=== PATIENT | female | born 1990 ===

== ENCOUNTER 2018-05-11 21:56 | Emergency (ER) | payer SELFPAY ==
--- NOTE | 2018-05-11 22:25 | ED PDOC ---
Arrival/HPI - General Historian: Patient <Ashlee Stuart - Last Filed: 05/11/18 22:32> <Lamberto Li - Last Filed: 05/11/18 22:41> - General Time Seen by Provider: 05/11/18 21:59 - History of Present Illness Narrative History of Present Illness (Text): 05/11/18 22:22 28yo female present with complaint of fever (Tmax 100.9), right breast pain since this evening. Notes that she is currently breast feeding a 2 and half month child. States her pain is resolved temporary with Ibuprofen. Denies any other complaint. (Ashlee Stuart A) Past Medical History - Provider Review Nursing Documentation Reviewed: Yes <SadeAshlee - Last Filed: 05/11/18 22:32> Family/Social History - Physician Review Nursing Documentation Reviewed: Yes Family/Social History: Unknown Family HX <SadeAshlee A - Last Filed: 05/11/18 22:32> Allergies/Home Meds <SadeAshlee A - Last Filed: 05/11/18 22:32> <Lamberto Li - Last Filed: 05/11/18 22:41> Allergies/Adverse Reactions: Allergies No Known Allergies Allergy (Verified 05/11/18 22:30) Review of Systems - Physician Review All systems were reviewed & negative as marked: Yes - Review of Systems Constitutional: Fevers Eyes: Normal ENT: Normal Respiratory: Normal Cardiovascular: Normal Gastrointestinal: Normal Genitourinary Female: Other (Right breast pain) Musculoskeletal: Normal Skin: Normal Neurological: Normal Endocrine: Normal Hemo/Lymphatic: Normal Psychiatric: Normal <SadeAshlee A - Last Filed: 05/11/18 22:32> Physical Exam Vital Signs Reviewed: Yes Temperature: Afebrile Blood Pressure: Normal Pulse: Regular Respiratory Rate: Normal Appearance: Positive for: Well-Appearing, Non-Toxic, Comfortable Pain Distress: None Mental Status: Positive for: Alert and Oriented X 3 - Systems Exam Head: Present: Atraumatic, Normocephalic Pupils: Present: PERRL Extroacular Muscles: Present: EOMI Conjunctiva: Present: Normal Mouth: Present: Moist Mucous Membranes Neck: Present: Normal Range of Motion Respiratory/Chest: Present: Clear to Auscultation, Good Air Exchange. No: Respiratory Distress, Accessory Muscle Use Cardiovascular: Present: Regular Rate and Rhythm, Normal S1, S2. No: Murmurs Abdomen: No: Tenderness, Distention, Peritoneal Signs Breast/Axillary: Present: Erythema (Wedged shaped erythema noted on right breast ), Swelling, Tender to Palpation (Over area of induration on right breast). No : Nipple Discharge Back: Present: Normal Inspection Upper Extremity: Present: Normal Inspection. No: Cyanosis, Edema Lower Extremity: Present: Normal Inspection. No: Edema Neurological: Present: GCS=15, CN II-XII Intact, Speech Normal Skin: Present: Warm, Dry, Normal Color. No: Rashes Psychiatric: Present: Alert, Oriented x 3, Normal Insight, Normal Concentration <Ashlee Stuart A - Last Filed: 05/11/18 22:32> Vital Signs Temp Pulse Resp BP Pulse Ox 05/11/18 22:38 99.8 F H 115 H 20 128/72 100 - Medication Orders Current Medication Orders: Discontinued Medications Ibuprofen (Motrin Tab) 600 mg PO STAT STA Stop: 05/11/18 22:31 Penicillin V Potassium (Penicillin Vk Tab) 500 mg PO STAT STA PRN Reason: Protocol Stop: 05/11/18 22:31 - PA / INSTRUMENT MAKER AND REPAIRER / Resident Statement / has reviewed & agrees with the documentation as recorded. <Lamberto Li - Last Filed: 05/11/18 22:41> Disposition/Present on Arrival - Present on Arrival Any Indicators Present on Arrival: No History of DVT/PE: No History of Uncontrolled Diabetes: No Urinary Catheter: No History of Decub. Ulcer: No History Surgical Site Infection Following: None - Disposition Have Diagnosis and Disposition been Completed?: Yes Disposition Time: 22:30 Patient Plan: Discharge <Ashlee Stuart A - Last Filed: 05/11/18 22:32> <Lamberto Li - Last Filed: 05/11/18 22:41> - Disposition Diagnosis: Mastitis Disposition: HOME/ ROUTINE Condition: STABLE Discharge Instructions (ExitCare): Mastitis (DC) Additional Instructions: Take medication as directed Apply warm compress to breast and pump breast Follow up with your Doctor Return to ED for any new or worsening symptoms Prescriptions: Penicillin VK [Penicillin VK Tab] 500 mg PO BID #14 tab Referrals: Kayley Pugh MD [Staff Provider] - Follow up with primary
[2018-05-11 23:35] VITALS: BP 115/72; PULSE 92; RESP 16; TEMP 98.9; O2SAT 99
== END 2018-05-11 23:35 | disposition home or self-care (01) ==
LOC: MERGE 21:56 → ED 21:56
DX: N61.0 Mastitis without abscess (principal)

== ENCOUNTER 2018-06-10 23:50 | Inpatient (IN) | payer MEDICAID, OTHER ==
--- NOTE | 2018-06-11 00:42 | ED PDOC ---
Arrival/HPI - General Chief Complaint: Abdominal Pain Time Seen by Provider: 06/11/18 00:33 Historian: Patient - History of Present Illness Narrative History of Present Illness (Text): 06/11/18 00:41 Opal Qiu is a 28 year old female, whose past medical history includes C- section in January 2018, P:1, who presents to the Emergency department complaining of intermittent abdominal pain. Patient states she has been experiencing diffuse abdominal pain since yesterday with associated nausea and vomiting. Patient states pain worsened after eating yesterday. Patient states she has experienced similar symptoms in the past following her . Patient states she has not had her menstrual period since March 2018. Patient denies any fever, chills, diarrhea, urinary symptoms, back pain, neck pain, headache, dizziness, or any other complaints. Symptom Onset: Gradual Symptom Course: Unchanged Activities at Onset: Light Context: Home Past Medical History - Provider Review Nursing Documentation Reviewed: Yes - Psychiatric Hx Substance Use: No - Anesthesia Hx Anesthesia: No Family/Social History - Physician Review Nursing Documentation Reviewed: Yes Family/Social History: Unknown Family HX Smoking Status: Never Smoked Hx Alcohol Use: No Hx Substance Use: No Allergies/Home Meds Allergies/Adverse Reactions: Allergies No Known Allergies Allergy (Verified 01/02/18 17:09) Home Medications: Home Meds Medication Instructions Recorded Confirmed No Known Home Med 06/11/18 06/11/18 Review of Systems - Physician Review All systems were reviewed & negative as marked: Yes - Review of Systems Constitutional: Normal. absent: Fevers Eyes: Normal ENT: Normal Respiratory: Normal. absent: SOB, Cough Cardiovascular: Normal. absent: Chest Pain Gastrointestinal: Abdominal Pain, Nausea, Vomiting. absent: Diarrhea Genitourinary Female: Normal. absent: Dysuria, Frequency, Hematuria, Urine Output Changes Musculoskeletal: Normal. absent: Back Pain, Neck Pain Skin: Normal. absent: Rash Neurological: Normal. absent: Headache, Dizziness Endocrine: Normal Hemo/Lymphatic: Normal Psychiatric: Normal Physical Exam Vital Signs Reviewed: Yes Vital Signs Temp Pulse Resp BP Pulse Ox 06/11/18 00:27 99.2 F 91 H 20 128/92 H 99 Temperature: Afebrile Blood Pressure: Normal Pulse: Regular Respiratory Rate: Normal Appearance: Positive for: Well-Appearing, Non-Toxic, Comfortable Pain Distress: None Mental Status: Positive for: Alert and Oriented X 3 - Systems Exam Head: Present: Atraumatic, Normocephalic Pupils: Present: PERRL Extroacular Muscles: Present: EOMI Conjunctiva: Present: Normal Mouth: Present: Moist Mucous Membranes Neck: Present: Normal Range of Motion Respiratory/Chest: Present: Clear to Auscultation, Good Air Exchange. No: Respiratory Distress, Accessory Muscle Use Cardiovascular: Present: Regular Rate and Rhythm, Normal S1, S2. No: Murmurs Abdomen: Present: Tenderness (right sided/mid lower abdomen), Normal Bowel Sounds, Guarding, McBurney's Point Tender. No: Distention, Peritoneal Signs Back: Present: Normal Inspection Upper Extremity: Present: Normal Inspection. No: Cyanosis, Edema Lower Extremity: Present: Normal Inspection. No: Edema Neurological: Present: GCS=15, CN II-XII Intact, Speech Normal Skin: Present: Warm, Dry, Normal Color. No: Rashes Psychiatric: Present: Alert, Oriented x 3, Normal Insight, Normal Concentration Medical Decision Making ED Course and Treatment: 06/11/18 00:41 Impression: 28 year old female complaining of worsening diffuse abdominal pain, nausea, and vomiting since yesterday. Plan: -- CT Abdomen and Pelvis -- Labs, lipase -- Urinalysis -- IV fluids -- Zofran -- Reassess and disposition Prior Visits: Notes and results from previous visits were reviewed. On 05/11/2018, pt was seen in the Emergency department fever and right breast pain. Pt was discharged home. Progress Notes: 06/11/18 03:26 Reviewed radiology, CT Abdomen and Pelvis shows: Abdomen pelvis:Liver, gallbladder, spleen, pancreas, both adrenals and both kidneys are normal.Normal caliber aorta. Findings compatible with acute appendicitis. The right lower quadrant, the appendix is seen on images 67 through 77. It is distended to 1.4 cm and there is regional inflammation. No bowel obstruction. Unremarkable uterus. Scattered ovarian follicles. Small amount of free fluid. No free air. IMPRESSION: Blood cultures, Rocephin and Flagyl ordered. president trust company and Dr. Carranza paged. 06/11/18 03:53 Case discussed with assembler surgical garment transmission rebuilder, who evaluated pt in the Emergency room and discussed case with Dr. Carranza. Requests pt go to hospitalist service. 06/11/18 03:58 Case discussed with ophthalmic medical technician transmission rebuilder, who is aware and agrees with plan. 06/11/18 04:[address] Carrasco, who is aware and agrees with plan. Accepts pt in to hospitalist service. Pt will be admitted to [facility] for appendicitis. - Lab Interpretations Lab Results: 06/11/18 01:00 06/11/18 01:00 Lab Results 06/11/18 01:00: WBC 16.4 H, RBC 4.77, Hgb 13.2, Hct 38.0, MCV 79.7 L, MCH 27.7, MCHC 34.7, RDW 14.1, Plt Count 303, MPV 9.2 06/11/18 01:00: Sodium 140, Potassium 4.0, Chloride 101, Carbon Dioxide 29, Anion Gap 14, BUN 17, Creatinine 0.7, Est GFR ( Amer) > 60, Est GFR (Non- Af Amer) > 60, Random Glucose 116 H, Calcium 9.5, Total Bilirubin 0.4, AST 27, ALT 30, Alkaline Phosphatase 95, Total Protein 8.4 H, Albumin 4.8, Globulin 3.6 , Albumin/Globulin Ratio 1.3, Lipase 104 06/11/18 00:45: Urine Color Yellow, Urine Appearance Clear, Urine pH 8.0, Ur Specific [place] 1.010, Urine Protein Negative, Urine Glucose (UA) Negative, Urine Ketones Negative, Urine Blood Negative, Urine Nitrate Negative, Urine Bilirubin Negative, Urine Urobilinogen 0.2, Ur Leukocyte Esterase Negative I have reviewed the lab results: Yes - RAD Interpretation Radiology Orders: 06/11/18 01:44 ABD & PELVIS IV CONTRAST ONLY [CT] Stat Controls Engineer: Radiologist - Medication Orders Current Medication Orders: Metronidazole (Flagyl) 500 mg in 100 mls @ 100 mls/hr IVPB STAT STA PRN Reason: Protocol Stop: 06/11/18 04:28 Discontinued Medications Sodium Chloride (Sodium Chloride 0.9%) 1,000 mls @ 999 mls/hr IV .Q1H1M STA Stop: 06/11/18 01:43 Last Admin: 06/11/18 01:06 Dose: 999 mls/hr eMAR Start Stop Document 06/11/18 01:06 CNR (Rec: 06/11/18 01:06 CNR [id number]) Intravenous Solution Start Date 06/11/18 Start Time 01:06 End Date 06/11/18 End time 02:06 Total Infusion Time 60 Ceftriaxone Sodium (Rocephin 1 Gram Ivpb) 1 gm in 100 mls @ 200 mls/hr IV ONCE STA PRN Reason: Protocol Stop: 06/11/18 03:57 Last Admin: 06/11/18 03:42 Dose: 200 mls/hr eMAR Start Stop Document 06/11/18 03:42 CNR (Rec: 06/11/18 03:43 CNR [id number]) Intravenous Solution Start Date 06/11/18 Start Time 03:43 End Date 06/11/18 End time 04:13 Total Infusion Time 30 Ketorolac Tromethamine (Toradol) 30 mg IVP ONCE ONE Stop: 06/11/18 00:59 Last Admin: 06/11/18 01:06 Dose: 30 mg MAR Pain Assessment Document 06/11/18 01:06 CNR (Rec: 06/11/18 01:06 CNR [id number]) Pain Reassessment Is this a pain reassessment? No IVP Administration Document 06/11/18 01:06 CNR (Rec: 06/11/18 01:06 CNR [id number]) Charges for Administration # of IVP Administrations 1 Ondansetron HCl (Zofran Inj) 4 mg IVP ONCE ONE Stop: 06/11/18 00:44 Last Admin: 06/11/18 01:06 Dose: 4 mg IVP Administration Document 06/11/18 01:06 CNR (Rec: 06/11/18 01:06 CNR [id number]) Charges for Administration # of IVP Administrations 1 - Scribe Statement The provider has reviewed the documentation as recorded by the [place] Provider Scribe Attestation: All medical record entries made by the Scribsera were at my direction and personally dictated by me. I have reviewed the chart and agree that the record accurately reflects my personal performance of the history, physical exam, medical decision making, and the department course for this patient. I have also personally directed, reviewed, and agree with the discharge instructions and disposition. Disposition/Present on Arrival - Present on Arrival Any Indicators Present on Arrival: No History of DVT/PE: No History of Uncontrolled Diabetes: No Urinary Catheter: No History of Decub. Ulcer: No History Surgical Site Infection Following: None - Disposition Have Diagnosis and Disposition been Completed?: Yes Diagnosis: Appendicitis Disposition: HOSPITALIZED Disposition Time: 04:04 Patient Plan: Admission Condition: STABLE
[2018-06-11] MEDS ORDERED: Sodium Chloride 0.9% 1,000 ML IV STA (00:43)
[2018-06-11 01:13] LABS: URINE BILIRUBIN NEGATIVE (NEGATIVE); URINE BLOOD NEGATIVE (NEGATIVE); URINE GLUCOSE (UA) NEGATIVE (NEGATIVE); URINE LEUKOCYTE ESTERASE NEGATIVE Leu/uL (NEGATIVE); URINE PROTEIN NEGATIVE mg/dL (<30 mg/dL); URINE UROBILINOGEN 0.2 E.U./dL (<1 E.U./dL)
[2018-06-11 01:15] LABS: HEMOGLOBIN 13.2 g/dL (12.0-16.0); MEAN CELL VOLUME 79.7 fl (80.0-105.0); MEAN CORPUSCULAR HEMOGLOBIN 27.7 pg (25.0-35.0); MEAN CORPUSCULAR HGB CONC 34.7 g/dl (31.0-37.0); MEAN PLATELET VOLUME 9.2 fl (7.0-11.0); RBC 4.77 10^6/uL (3.5-6.1); RED CELL DISTRIBUTION WIDTH 14.1 % (11.5-14.5); WHITE BLOOD COUNT 16.4 10^3/ul (4.5-11.0)
[2018-06-11 01:20] LABS: URINE APPEARANCE CLEAR (CLEAR); URINE COLOR YELLOW (YELLOW)
[2018-06-11 01:26] LABS: ALB/GLOB RATIO 1.3 (1.1-1.8); ALBUMIN 4.8 g/dL (3.0-4.8); ALT/SGPT 30 U/L (7-56); AST/SGOT 27 U/L (14-36); BLOOD UREA NITROGEN 17 mg/dL (7-21); CALCIUM 9.5 mg/dL (8.4-10.5); GFR NON-AFRICAN AMERICAN > 60; LIPASE 104 U/L (23-300)
[2018-06-11] MEDS ORDERED: Iohexol 350 MG/100 ML VIAL ONE (01:54)
[2018-06-11] MEDS ORDERED: cefTRIAXone 1 gm 1 GM/100 ML BAG IV STA (03:28)
[2018-06-11] MEDS ORDERED: metroNIDAZOLE IV 500 mg/100 ml 500 MG/100 ML BAG IVPB STA (03:29)
--- NOTE | 2018-06-11 05:11 | CP.PCM.HP ---
<August Menchaca - Last Filed: 06/11/18 05:23> History of Present Illness - History of Present Illness History of Present Illness: August Menchaca, PGY-1 H&P for Hospitalist Service This is a 28 year old female with no PMH presenting to the hospital for one day history of abdominal pain, nausea and vomiting x2 nonbloody. Patient states she woke up and had B/L lower abdominal pain rated at 9/10, sharp, and non radiating. Pain is worse with standing and deep breathing. Patient says nothing makes the pain better. Patient has never had this pain before. She did not try anything for the pain. She denies CP, SOB, back pain, urinary complaints, diarrhea, constipation, hematochezia, fevers, chills, recent travel and recent sickness. 12 point ROS noted here, otherwise unremarkable. In ED, CT abd/pelvis concerning for acute appendicitis. Patient given zofran, toradol, flagyl and rocephin. General surgery planning for appendectomy later today. PMH: none SH: denies smoking, drinking and drugs Sx: in 01/2018 FH: denies any major health concerns All: denies Meds: denies Present on Admission - Present on Admission Any Indicators Present on Admission: No Past Patient History - Past Social History Smoking Status: Never Smoked - PSYCHIATRIC Hx Substance Use: No - SURGICAL HISTORY Hx Surgeries: No - ANESTHESIA Hx Anesthesia: No Meds Allergies/Adverse Reactions: Allergies Allergy/AdvReac Type Severity Reaction Status Date / Time No Known Allergies Allergy Verified 01/02/18 17:09 Physical Exam - Constitutional Appears: No Acute Distress - Head Exam Head Exam: ATRAUMATIC, NORMAL INSPECTION - Eye Exam Eye Exam: EOMI Pupil Exam: PERRL - ENT Exam ENT Exam: Normal Exam - Respiratory Exam Respiratory Exam: Clear to Auscultation Bilateral. absent: Respiratory Distress - Cardiovascular Exam Cardiovascular Exam: REGULAR RHYTHM, +S1, +S2 - GI/Abdominal Exam GI & Abdominal Exam: Normal Bowel Sounds. absent: Firm, Guarding Additional comments: RLQ tenderness appreciated - Extremities Exam Extremities exam: Positive for: normal inspection. Negative for: calf tenderness - Back Exam Back exam: NORMAL INSPECTION - Neurological Exam Neurological exam: Alert, Oriented x3 - Skin Skin Exam: Normal Color, Warm Results - Vital Signs Recent Vital Signs: Last Vital Signs Temp 99.2 F 06/11/18 00:27 Pulse 91 H 06/11/18 00:27 Resp 20 06/11/18 00:27 BP 128/92 H 06/11/18 00:27 Pulse Ox 99 06/11/18 00:27 - Labs Result Diagrams: 06/11/18 01:00 06/11/18 01:00 Assessment & Plan - Assessment and Plan (Free Text) Assessment: This is a 28 year old female with no PMH presenting for abdominal pain, nausea and vomiting concerning for acute appendictis. Appendectomy planned for today. Patient admitted to [facility]. Abdominal pain -CT abd/pelvis concerning for acute appendicitis -WBC of 16.4, afebrile -started on ciprofloxacin and flagyl -toradol and zofran prn -tylenol prn -NPO diet -plan for appendix removal today -General surgery on consult, Dr. Carranza PPX with protonix and SCD Patient seen and case discussed with attending, Dr. Luna Menchaca, PGY-1 <Truong Carrasco - Last Filed: 06/11/18 06:51> Results - Vital Signs Recent Vital Signs: Last Vital Signs Temp 99.2 F 06/11/18 00:27 Pulse 88 06/11/18 05:23 Resp 18 06/11/18 05:23 BP 116/72 06/11/18 05:23 Pulse Ox 99 06/11/18 05:23 - Labs Result Diagrams: 06/11/18 01:00 06/11/18 01:00 Attending/Attestation - Attestation I have personally seen and examined this patient.: Yes I have fully participated in the care of the patient.: Yes I have reviewed all pertinent clinical information: Yes
[2018-06-11] MEDS ORDERED: metroNIDAZOLE IV 500 mg/100 ml 500 MG/100 ML BAG IVPB SCH (06:00)
--- NOTE | 2018-06-11 06:11 | CP.PCM.CON ---
History of Present Illness - History of Present Illness History of Present Illness: General Surgery Consult for Dr. Carranza CC: Appendicitis This is a 28F with no PMH and a PSH of a 3 months ago who presents with one day of sever abdominal pain. It began at 2pm with nausea/vomiting and food intolerance and generalized abdominal pain however as the day progressed the pain became mores severe and localized to the lower abdomen. She reports feeling a similar sensation right after her . Nothing makes it better or worse. No fevers or chills at home. PMH: None PSH: ALL; NKDA Social: Denies smoking, drinking or drug use Review of Systems - Review of Systems All systems: reviewed and no additional remarkable complaints except - Constitutional Constitutional: absent: Chills, Fever - EENT Eyes: absent: Blind Spots, Change in Vision - Breasts Additional comments: Breast feeding - Cardiovascular Cardiovascular: absent: Chest Pain, Dyspnea - Respiratory Respiratory: absent: Dyspnea, Dyspnea on Exertion - Gastrointestinal Gastrointestinal: Abdominal Pain, Nausea, Vomiting. absent: Melena - Genitourinary Genitourinary: absent: Difficulty Urinating, Dysuria Past Patient History - Past Social History Smoking Status: Never Smoked - PSYCHIATRIC Hx Substance Use: No - SURGICAL HISTORY Hx Surgeries: No - ANESTHESIA Hx Anesthesia: No Meds Allergies/Adverse Reactions: Allergies Allergy/AdvReac Type Severity Reaction Status Date / Time No Known Allergies Allergy Verified 01/02/18 17:09 - Medications Medications: Current Medications Acetaminophen (Tylenol 325mg Tab) 650 mg PO Q6H PRN PRN Reason: Fever >100.4 F Ciprofloxacin (Cipro 200mg/100ml D5w) 100 mls @ 67 mls/hr IVPB Q12 ELISABETH PRN Reason: Protocol Stop: 06/11/18 11:30 Metronidazole (Flagyl) 500 mg in 100 mls @ 100 mls/hr IVPB Q8 ELISABETH PRN Reason: Protocol Ketorolac Tromethamine (Toradol) 30 mg IVP Q4 PRN PRN Reason: Pain, moderate (4-7) Last Admin: 06/11/18 05:11 Dose: 30 mg Ondansetron HCl (Zofran Inj) 4 mg IVP Q4 PRN PRN Reason: Nausea/Vomiting Pantoprazole Sodium (Protonix Inj) 40 mg IVP DAILY ELISABETH Physical Exam - Constitutional Appears: Non-toxic, No Acute Distress - Head Exam Head Exam: ATRAUMATIC, NORMOCEPHALIC - Eye Exam Eye Exam: EOMI - ENT Exam ENT Exam: Mucous Membranes Moist - Respiratory Exam Respiratory Exam: NORMAL BREATHING PATTERN - Cardiovascular Exam Cardiovascular Exam: +S1, +S2 - GI/Abdominal Exam GI & Abdominal Exam: Rebound, Soft. absent: Distended, Firm, Guarding, Rigid - Extremities Exam Extremities exam: Positive for: normal inspection - Neurological Exam Neurological exam: Alert, Oriented x3 - Psychiatric Exam Psychiatric exam: Normal Affect, Normal Mood - Skin Skin Exam: Dry, Intact Results - Vital Signs Recent Vital Signs: Last Vital Signs Temp 99.2 F 06/11/18 00:27 Pulse 88 06/11/18 05:23 Resp 18 06/11/18 05:23 BP 116/72 06/11/18 05:23 Pulse Ox 99 06/11/18 05:23 - Labs Result Diagrams: 06/11/18 01:00 06/11/18 01:00 - Imaging and Cardiology CT scan - abdomen Status: Image reviewed by me, Report reviewed by me CT scan - pelvis Status: Image reviewed by me, Report reviewed by me Assessment & Plan - Assessment and Plan (Free Text) Assessment: 28F with acute appendicitis NPO IVF ABX OR this afternoon D/W Dr. Tere Nava PGY3
[2018-06-11 06:58] VITALS: BMI 25.4
[2018-06-11 07:43] LABS: BASO # 0.03 K/mm3 (0.0-2.0); BASO % 0.2 % (0.0-3.0); EOS % 0.2 % (1.5-5.0); GRAN # 10.95 (1.4-6.5); GRAN % 80.2 % (50.0-68.0); LYMPH # 1.9 (1.2-3.4); LYMPH % 14.1 % (22.0-35.0); MEAN CELL VOLUME 79.9 fl (80.0-105.0); MEAN CORPUSCULAR HEMOGLOBIN 27.4 pg (25.0-35.0); MEAN CORPUSCULAR HGB CONC 34.3 g/dl (31.0-37.0); MEAN PLATELET VOLUME 8.9 fl (7.0-11.0); MONO # 0.7 (0.1-0.6); MONO % 5.3 % (1.0-6.0); RBC 4.02 10^6/uL (3.5-6.1); RED CELL DISTRIBUTION WIDTH 14.1 % (11.5-14.5); WHITE BLOOD COUNT 13.7 10^3/ul (4.5-11.0)
[2018-06-11 07:57] LABS: ALB/GLOB RATIO 1.4 (1.1-1.8); ALBUMIN 4.1 g/dL (3.0-4.8); ALT/SGPT 27 U/L (7-56); AST/SGOT 18 U/L (14-36); BLOOD UREA NITROGEN 12 mg/dL (7-21); CALCIUM 8.7 mg/dL (8.4-10.5); GFR NON-AFRICAN AMERICAN > 60
--- NOTE | 2018-06-11 08:57 | CT ---
Date of service: 06/11/2018 PROCEDURE: CT Abdomen and Pelvis with contrast HISTORY: abdominal pain COMPARISON: None. TECHNIQUE: Contrast dose: 100 cc of Omni 350 Radiation dose: Total exam DLP = 563 mGy-cm. This CT exam was performed using one or more of the following dose reduction techniques: Automated exposure control, adjustment of the mA and/or kV according to patient size, and/or use of iterative reconstruction technique. FINDINGS: LOWER THORAX: Unremarkable. LIVER: Unremarkable. No gross lesion or ductal dilatation. GALLBLADDER AND BILE DUCTS: Unremarkable. PANCREAS: Unremarkable. No gross lesion or ductal dilatation. SPLEEN: Unremarkable. ADRENALS: Unremarkable. No mass. KIDNEYS AND URETERS: Unremarkable. No hydronephrosis. No solid mass. VASCULATURE: Unremarkable. No aortic aneurysm. BOWEL: Unremarkable. No obstruction. No gross mural thickening. APPENDIX: There is evidence of acute appendicitis. The appendix is distended with fluid. There is enhancement of the wall. The appendix measures 1.2 cm in diameter. PERITONEUM: Unremarkable. No free fluid. No free air. LYMPH NODES: Unremarkable. No enlarged lymph nodes. BLADDER: Unremarkable. REPRODUCTIVE: Unremarkable. BONES: No acute fracture. OTHER FINDINGS: The report concurs with the preliminary [facility] report IMPRESSION: Acute appendicitis
[2018-06-11] MEDS ORDERED: Ciprofloxacin 200mg/100ml D5W 100 ML IVPB SCH (10:00)
[2018-06-11] MEDS: Sodium Chloride 0.9% 1,000 ML IV SCH ×2 (10:15→18:21)
[2018-06-11] MEDS: Piperacillin/Tazobact 3.375 gm 100 ML IVPB SCH ×2 (11:41→18:22)
[2018-06-11] MEDS ORDERED: HYDROmorphone 0.5 mg/0.5 ml ISec IVP PRN (18:21)
[2018-06-11] MEDS ORDERED: Propofol 10 mg/ml Inj (20 ML) ONE ×2 (18:30→19:35)
[2018-06-11] MEDS ORDERED: Lactated Ringer's 1,000 ML IV SCH (18:30)
[2018-06-11] MEDS ORDERED: Succinylcholine 200 mg/10 ml Inj IV ONE (18:30)
[2018-06-11] MEDS ORDERED: Bupivacaine 0.5% Inj(30mL) ONE (18:51)
[2018-06-11] MEDS ORDERED: Esmolol 100 mg/10ml Inj IV ONE (19:08)
[2018-06-11] MEDS ORDERED: Neostigmine Methylsulfate 3mg/3ml Syringe IV ONE (19:14)
[2018-06-11] MEDS ORDERED: Desflurane Inhalation Anesthetic Liq (240 ml) ONE (19:36)
[2018-06-11] MEDS ORDERED: oxyCODONE 5 mg Immediate Release Tab PO PRN ×2 (20:27)
--- NOTE | 2018-06-11 20:27 | PCM.SURG1 ---
Surgeon's Initial Post Op Note - Surgeon's Notes Surgeon: Dr. Carranza Mathematical Technician: Dr. Hopper PGY3 Type of Anesthesia: General Endo Pre-Operative Diagnosis: acute appendicitis Operative Findings: see dictation Post-Operative Diagnosis: same Operation Performed: laparoscopic appendectomy, lysis of adhesions, primary repair umbilical hernia Specimen/Specimens Removed: appendix; hernia contents Estimated Blood Loss: EBL {In ML}: 10 Blood Products Given: N/A Drains Used: No Drains Post-Op Condition: Good Date of Surgery/Procedure: 06/11/18 Time of Surgery/Procedure: 20:27
[2018-06-11 22:41] VITALS: RESP 20
[2018-06-12] MEDS: Sodium Chloride 0.9% 1,000 ML IV SCH (01:49)
[2018-06-12 07:10] LABS: BASO # 0.01 K/mm3 (0.0-2.0); BASO % 0.1 % (0.0-3.0); GRAN # 8.25 (1.4-6.5); GRAN % 82.8 % (50.0-68.0); HEMOGLOBIN 10.7 g/dL (12.0-16.0); LYMPH # 1.3 (1.2-3.4); LYMPH % 13.1 % (22.0-35.0); MEAN CELL VOLUME 80.1 fl (80.0-105.0); MEAN CORPUSCULAR HGB CONC 33.8 g/dl (31.0-37.0); MONO # 0.4 (0.1-0.6); RBC 3.96 10^6/uL (3.5-6.1); RED CELL DISTRIBUTION WIDTH 14.2 % (11.5-14.5)
[2018-06-12 07:23] LABS: ALB/GLOB RATIO 1.2 (1.1-1.8); ALT/SGPT 23 U/L (7-56); AST/SGOT 21 U/L (14-36); BLOOD UREA NITROGEN 10 mg/dL (7-21); CALCIUM 9.5 mg/dL (8.4-10.5); GFR NON-AFRICAN AMERICAN > 60
[2018-06-12] MEDS: Piperacillin/Tazobact 3.375 gm 100 ML IVPB SCH ×2 (07:37→12:19)
--- NOTE | 2018-06-12 08:50 | OP ---
PROCEDURE DATE: 06/11/2018 PREOPERATIVE DIAGNOSES: 1. Acute appendicitis. 2. Status post 3 months ago. 3. Leukocytosis. POSTOPERATIVE DIAGNOSES: 1. Acute suppurative phlegmonous appendicitis. 2. Pelvic abscess. 3. Extensive post operative omental adhesion to the anterior abdominal wall, status post . 4. Umbilical hernia. PROCEDURES DONE: 1. Laparoscopic appendectomy. 2. Laparoscopic extensive lysis of adhesions. 3. Laparoscopic drainage of pelvic abscess. 4. Open umbilical hernia repair without mesh, primary closure. SURGEON: The procedure was done by Carlos A cope MD. LABORER ELECTROPLATING: Ella Hopper DO, PGY-2 resident. ANESTHESIA: General endotracheal tube anesthesia. ESTIMATED BLOOD LOSS: Around 10 mL. DRAIN: None. PATHOLOGY: 1. Appendix was sent to the Pathology. 2. Umbilical hernia sac and content were sent to the Pathology. COMPLICATIONS: None. INTRAOPERATIVE FINDINGS: The patient has acute suppurative phlegmonous appendicitis with purulent pelvic abscess, and the patient also had 2 x 2 cm umbilical hernia. DESCRIPTION OF PROCEDURE: On intraoperative steps, this is a 28-year-old female who was diagnosed with acute appendicitis with leukocytosis, and the patient was status post 3 months ago, and the patient was considered for the laparoscopic appendectomy, possible open, brought to the OR, and placed supine on the operating room table. After induction of the anesthesia, the abdomen was prepped and draped in the usual sterile fashion. Supraumbilical transverse incision was made after incising skin, subcutaneous tissue, and the fascia. Fozia port was placed. The patient was found to have umbilical hernia defect, and Fozia port was passed through the defect, and Pneumo was created. Another, 5-mm port was placed in the right upper quadrant in order to do the extensive lysis of adhesions and the omentum was found to the lower abdominal wall, and with harmonic scalpel, the complete lysis of adhesion as well as enterolysis was done, and after that, the patient was found to have pelvic collection, that was suction irrigated, and the appendix appeared to be extremely thickened edematous, and there were some phlegmonous changes and another lysis of adhesion was done and the major appendix was dissected with harmonic scalpel. Base of the appendix was dissected with LUZ ELENA and appendix was sent off the table for the pathology. There was a proper hemostasis in each and every part of the procedure. Again, the suction and irrigation of the pelvic area was done and perihepatic area was also done, and after proper hemostasis, all the ports were taken out under vision. Pneumo was deflated. The umbilical port site had umbilical hernia and first hernial sac was dissected and the content was sent to the table for the pathology and hernial defect was closed with 0 Prolene interrupted multiple sutures and after proper closure of hernial defect without mesh, all the wounds were closed with two layers. The subcutaneous with 2-0 Vicryl, skin with 4-0 Monocryl, and dry sterile dressing was applied. The patient tolerated the procedure well. Count of instrument and gauze was correct. There was no apparent complications. The patient was extubated in OR and sent to the postanesthesia care unit in stable condition. Carlos A Carranza MD
[2018-06-12 09:35] VITALS: BP 103/64; PULSE 100; TEMP 98; O2SAT 96
--- NOTE | 2018-06-12 11:46 | CP.PCM.PN ---
Subjective - Date & Time of Evaluation Date of Evaluation: 06/12/18 Time of Evaluation: 10:30 - Subjective Subjective: Jaziel Leary DO, PGY-1 Surgery Progress Note for Dr. Carranza Patient was seen and examined at bedside this AM. She reports her initial RLQ pain has resolved and the pain from her incisions is controlled with tylenol. She feels ready to go home. Objective - Vital Signs/Intake and Output Vital Signs (last 24 hours): Temp Pulse Resp BP Pulse Ox 98 F 100 H 20 103/64 96 06/12/18 06:00 06/12/18 06:00 06/12/18 06:00 06/12/18 06:00 06/12/18 06:00 Intake and Output: 06/12/18 06/12/18 06:59 18:59 Intake Total 420 Balance 420 - Medications Medications: Current Medications Acetaminophen (Tylenol 325mg Tab) 650 mg PO Q4 PRN PRN Reason: Pain, Mild (1-3) Last Admin: 06/12/18 10:34 Dose: 650 mg Docusate Sodium (Colace) 100 mg PO DAILY [facility] Last Admin: 06/12/18 10:28 Dose: 100 mg Sodium Chloride (Sodium Chloride 0.9%) 1,000 mls @ 100 mls/hr IV .Q10H [facility] Last Admin: 06/12/18 01:49 Dose: 100 mls/hr Piperacillin Sod/Tazobactam Sod (Zosyn 3.375 In Ns 100ml) 100 mls @ 200 mls/hr IVPB Q6 [facility]AB[facility] PRN Reason: Protocol Stop: 06/12/18 12:29 Last Admin: 06/12/18 07:37 Dose: 200 mls/hr Ketorolac Tromethamine (Toradol) 30 mg IVP Q6 PRN PRN Reason: Pain, severe (8-10) Metoclopramide HCl (Reglan) 10 mg IV ONCE PRN PRN Reason: Nausea/Vomiting Ondansetron HCl (Zofran Inj) 4 mg IVP Q4 PRN PRN Reason: Nausea/Vomiting Ondansetron HCl (Zofran Inj) 4 mg IVP ONCE PRN PRN Reason: Nausea/Vomiting Oxycodone HCl (Oxycodone Immediate Release Tab) 5 mg PO Q4 PRN PRN Reason: Pain, moderate (4-7) Oxycodone HCl (Oxycodone Immediate Release Tab) 10 mg PO Q6 PRN PRN Reason: Pain, severe (8-10) Pantoprazole Sodium (Protonix Inj) 40 mg IVP DAILY [facility] Last Admin: 06/12/18 10:28 Dose: 40 mg - Labs Labs: 06/12/18 06:30 06/12/18 06:30 - Constitutional Appears: Well, Non-toxic, No Acute Distress - Head Exam Head Exam: ATRAUMATIC, NORMAL INSPECTION - Eye Exam Eye Exam: Normal appearance - ENT Exam ENT Exam: Mucous Membranes Moist - Neck Exam Neck Exam: Full ROM, Normal Inspection - Respiratory Exam Respiratory Exam: absent: Accessory Muscle Use, Respiratory Distress - Cardiovascular Exam Cardiovascular Exam: +S1, +S2 - GI/Abdominal Exam GI & Abdominal Exam: Soft. absent: Firm, Guarding, Tenderness, Rebound Additional comments: 4 surgical laparotomy wounds clean, dry, and intact - Extremities Exam Extremities Exam: Normal Inspection - Neurological Exam Neurological Exam: Alert, Awake, Oriented x3 - Psychiatric Exam Psychiatric exam: Normal Affect, Normal Mood - Skin Skin Exam: Dry, Intact, Normal Color, Warm Assessment and Plan - Assessment and Plan (Free Text) Assessment: 28 F with appendicitis s/p lap appendectomy POD 1. Plan: -Patient cleared for discharge from surgical standpoint -F/u with Dr. Carranza in 7-10 days -Instructed patient to avoid lifting her young son or anything else > 20 lbs -Instructed patient she may resume tomorrow (POD 2) -Augmentin 500 BID for 7 days -Instructed patient not to shower until Dr. Carranza sees in office Case and plan discussed with Dr. Tere Leary DO Resident PGY-1
--- NOTE | 2018-06-12 13:10 | CP.PCM.DIS ---
Provider - Provider Date of Admission: 06/11/18 03:56 Attending physician: Brunilda Zhang DO Primary care physician: none Consults: surgery (Tere) Time Spent in preparation of Discharge (in minutes): 45 Diagnosis - Discharge Diagnosis (1) Appendicitis Status: Acute Priority: High Hospital Course - Lab Results Lab Results: Most Recent Lab Values WBC 10.0 10^3/ul (4.5-11.0) D 06/12/18 06:30 RBC 3.96 10^6/uL (3.5-6.1) 06/12/18 06:30 Hgb 10.7 g/dL (12.0-16.0) L 06/12/18 06:30 Hct 31.7 % (36.0-48.0) L 06/12/18 06:30 MCV 80.1 fl (80.0-105.0) 06/12/18 06:30 MCH 27.0 pg (25.0-35.0) 06/12/18 06:30 MCHC 33.8 g/dl (31.0-37.0) 06/12/18 06:30 RDW 14.2 % (11.5-14.5) 06/12/18 06:30 Plt Count 238 10^3/uL (120.0-450.0) 06/12/18 06:30 MPV 9.0 fl (7.0-11.0) 06/12/18 06:30 Gran % 82.8 % (50.0-68.0) H 06/12/18 06:30 Lymph % (Auto) 13.1 % (22.0-35.0) L 06/12/18 06:30 Sherman % (Auto) 4.0 % (1.0-6.0) 06/12/18 06:30 Eos % (Auto) 0.0 % (1.5-5.0) L 06/12/18 06:30 Baso % (Auto) 0.1 % (0.0-3.0) 06/12/18 06:30 Gran # 8.25 (1.4-6.5) H 06/12/18 06:30 Lymph # (Auto) 1.3 (1.2-3.4) 06/12/18 06:30 Sherman # (Auto) 0.4 (0.1-0.6) 06/12/18 06:30 Eos # (Auto) 0.0 (0.0-0.7) 06/12/18 06:30 Baso # (Auto) 0.01 K/mm3 (0.0-2.0) 06/12/18 06:30 Sodium 141 mmol/L (132-148) 06/12/18 06:30 Potassium 4.4 mmol/L (3.6-5.0) 06/12/18 06:30 Chloride 107 mmol/L (98-107) 06/12/18 06:30 Carbon Dioxide 26 mmol/L (21-33) 06/12/18 06:30 Anion Gap 13 (10-20) 06/12/18 06:30 BUN 10 mg/dL (7-21) 06/12/18 06:30 Creatinine 0.6 mg/dl (0.7-1.2) L 06/12/18 06:30 Est GFR ( Amer) > 60 06/12/18 06:30 Est GFR (Non-Af Amer) > 60 06/12/18 06:30 Random Glucose 123 mg/dL (70-110) H 06/12/18 06:30 Calcium 9.5 mg/dL (8.4-10.5) 06/12/18 06:30 Phosphorus 4.5 mg/dL (2.5-4.5) 06/12/18 06:30 Magnesium 2.0 mg/dL (1.7-2.2) 06/12/18 06:30 Total Bilirubin 0.6 mg/dL (0.2-1.3) 06/12/18 06:30 AST 21 U/L (14-36) 06/12/18 06:30 ALT 23 U/L (7-56) 06/12/18 06:30 Alkaline Phosphatase 69 U/L (38-126) 06/12/18 06:30 Total Protein 7.2 g/dL (5.8-8.3) 06/12/18 06:30 Albumin 4.0 g/dL (3.0-4.8) 06/12/18 06:30 Globulin 3.3 gm/dL 06/12/18 06:30 Albumin/Globulin Ratio 1.2 (1.1-1.8) 09/12/18 06:30 Lipase 104 U/L (23-300) 06/11/18 01:00 Urine Color Yellow (YELLOW) 06/11/18 00:45 Urine Appearance Clear (CLEAR) 06/11/18 00:45 Urine pH 8.0 (4.7-8.0) 06/11/18 00:45 Ur Specific [place] 1.010 (1.005-1.035) 06/11/18 00:45 Urine Protein Negative mg/dL (<30 mg/dL) 06/11/18 00:45 Urine Glucose (UA) Negative mg/dL (NEGATIVE) 06/11/18 00:45 Urine Ketones Negative mg/dL (NEGATIVE) 06/11/18 00:45 Urine Blood Negative (NEGATIVE) 06/11/18 00:45 Urine Nitrate Negative (NEGATIVE) 06/11/18 00:45 Urine Bilirubin Negative (NEGATIVE) 06/11/18 00:45 Urine Urobilinogen 0.2 E.U./dL (<1 E.U./dL) 06/11/18 00:45 Ur Leukocyte Esterase Negative Gerardo/uL (NEGATIVE) 06/11/18 00:45 - Hospital Course Hospital Course: This is a 28 year old female with no PMH presenting to the hospital for one day history of abdominal pain, nausea and vomiting x2 nonbloody. Patient states she woke up and had B/L lower abdominal pain rated at 9/10, sharp, and non radiating. Pain is worse with standing and deep breathing. Patient says nothing makes the pain better. Patient has never had this pain before. She did not try anything for the pain. She denies CP, SOB, back pain, urinary complaints, diarrhea, constipation, hematochezia, fevers, chills, recent travel and recent sickness. 12 point ROS noted here, otherwise unremarkable. In ED, CT abd/pelvis concerning for acute appendicitis. Patient given zofran, toradol, flagyl and rocephin. The patient had a laproscopic appendectomy with umbilical hernia repair on without complications. Post-op, the patient's pain was well controlled. She was tolerating oral intake, urinating, and passing gas. Upon discharge, the patient's leukocystosis resolved. She was afebrile. Her pain was well-controlled with Tylenol. Patient was transitioned from IV abx to oral Augmentin. Discharge Exam - Head Exam Head Exam: ATRAUMATIC, NORMAL INSPECTION - Eye Exam Eye Exam: EOMI, Normal appearance, PERRL - ENT Exam ENT Exam: Mucous Membranes Moist, Normal Exam - Neck Exam Neck exam: Normal Inspection - Respiratory Exam Respiratory Exam: Clear to PA & Lateral, NORMAL BREATHING PATTERN - Cardiovascular Exam Cardiovascular Exam: REGULAR RHYTHM, +S1, +S2 - GI/Abdominal Exam GI & Abdominal Exam: Normal Bowel Sounds, Soft, Tenderness (mild), Unremarkable. absent: Firm, Guarding Additional comments: bandages over surgical incisions, clean, dry, no signs of infection - Rectal Exam Rectal Exam: Deferred - Extremities Exam Extremities exam: normal inspection, pedal pulses present - Back Exam Back exam: NORMAL INSPECTION - Neurological Exam Neurological exam: Alert, CN II-XII Intact, Normal Gait, Oriented x3 - Psychiatric Exam Psychiatric exam: Normal Affect, Normal Mood - Skin Skin Exam: Dry, Intact, Normal Color, Warm Discharge Plan - Discharge Medications Prescriptions: Amoxicillin/Clavulanate [Augmentin 500 MG-125 MG] 1 tab PO BID 7 Days #14 tab - Follow Up Plan Condition: IMPROVED Disposition: HOME/ ROUTINE Patient education suggested?: Yes Instructions: Appendicitis in Adults, Diet, Appendectomy, Laparoscopic Surgery (DC), Medicine and Additional Instructions: You are being discharged from [facility] after having a laproscopic appendectomy on 06/11/18. Do NOT breast feed for the next 24 hours. You may resume breast feeding tomorrow, 06/13/18. Please follow-up with surgeon, Dr. Carranza, within 7-10 days. Do not shower until after you see the surgeon for follow-up; you may take sponge baths. Please establish care with a primary care physician at the [facility] at [facility]. You have an appointment scheduled for 06/20/18 at 3 PM. Please bring all of you [facility] and Medicaid paperwork with you to this appointment and arrive 30 minutes early to complete demographic paperwork. Please take the follow medication for a total of 7 days (all pills): Augmentin 500-125 mg- take one by mouth twice daily For pain, you may use [id number] Tylenol- please follow instructions on the bottle. For constipation, please visit your pharmacy and ask the pharmacist for an over- the-counter medication that is safe with breast feeding. If symptoms return, please present to the nearest emergency room. Referrals: [facility] at [facility] [Outside] Carlos A Carranza MD [Medical Doctor] -
[2018-06-13] MEDS ORDERED: Pantoprazole 40 mg EC Tab PO SCH (07:30)
== END 2018-06-12 15:45 | disposition home or self-care (01) | DRG 337 ==
LOC: ED 23:50 → ERH 06-11 03:56 → 5RNO 06-11 05:38
PROVIDERS: ADMIT Internal Medicine; ATTEND Hospitalist
PROC: 0WQF0ZZ Repair Abdominal Wall, Open Approach (ICD-10-PCS; 2018-06-11)
PROC: 0J9C3ZZ Drainage of Pelvic Region Subcutaneous Tissue and Fascia, Percutaneous Approach (ICD-10-PCS; 2018-06-11)
PROC: 0DTJ4ZZ Resection of Appendix, Percutaneous Endoscopic Approach (ICD-10-PCS; principal; 2018-06-11 16:00)
PROC: 0DNU4ZZ Release Omentum, Percutaneous Endoscopic Approach (ICD-10-PCS; 2018-06-11 16:00)
DX: K35.80 Unspecified acute appendicitis (principal); K42.9 Umbilical hernia without obstruction or gangrene; N73.9 Female pelvic inflammatory disease, unspecified; K66.0 Peritoneal adhesions (postprocedural) (postinfection); Z98.891 History of uterine scar from previous surgery

== ENCOUNTER 2018-07-05 15:04 | Inpatient (IN) | payer MEDICAID, OTHER ==
[2018-07-05 15:30] VITALS: BMI 28.6
--- NOTE | 2018-07-05 15:57 | ED PDOC ---
Arrival/HPI - General Chief Complaint: Abdominal Pain Time Seen by Provider: 07/05/18 15:53 Historian: Patient - History of Present Illness Narrative History of Present Illness (Text): 07/05/18 15:55 A 28 year old female, whose past medical history includes appendectomy and hernia repair, presents to the emergency department with sudden onset of sever epigastric pain radiating to her back since yesterday. Patient reports pain is now constant and severe. Patient reports associated nausea and worsens with any eating or drinking. Patient denies any fever, chills, shortness of breath, chest pain, diarrhea, vomiting, urinary symptoms, back pain, neck pain, headache, dizziness, or any other complaints. Time/Duration: 24 hours (Since yesterday) Symptom Onset: Sudden Symptom Course: Unchanged Severity Level: Severe Activities at Onset: Light Context: Home Past Medical History - Provider Review Nursing Documentation Reviewed: Yes - Infectious Disease Hx of Infectious Diseases: None - Cardiac Hx Cardiac Disorders: No - Pulmonary Hx Respiratory Disorders: No - Neurological Hx Neurological Disorder: No - HEENT Hx HEENT Disorder: No - Renal Hx Renal Disorder: No - Endocrine/Metabolic Hx Endocrine Disorders: No - Hematological/Oncological Hx Blood Disorders: No - Integumentary Hx Dermatological Disorder: No - Musculoskeletal/Rheumatological Hx Musculoskeletal Disorders: No - Gastrointestinal Hx Gastrointestinal Disorders: No - Genitourinary/Gynecological Hx Genitourinary Disorders: No - Psychiatric Hx Psychophysiologic Disorder: No Hx Substance Use: No - Surgical History Hx Appendectomy: Yes (June 2018) Hx Section: Yes (January 2018) - Anesthesia Hx Anesthesia Reactions: No Hx Malignant Hyperthermia: No - Suicidal Assessment Feels Threatened In Home Enviroment: No Family/Social History - Physician Review Nursing Documentation Reviewed: Yes Family/Social History: Unknown Family HX Smoking Status: Never Smoked Hx Alcohol Use: No Hx Substance Use: No Allergies/Home Meds Allergies/Adverse Reactions: Allergies No Known Allergies Allergy (Verified 07/05/18 15:36) Home Medications: Home Meds Medication Instructions Recorded Confirmed RX: No Known Home Med 07/05/18 07/05/18 Review of Systems - Review of Systems Constitutional: Fatigue. absent: Fevers Eyes: absent: Vision Changes ENT: absent: Hearing Changes Respiratory: SOB. absent: Cough Cardiovascular: absent: Chest Pain Gastrointestinal: Abdominal Pain, Nausea, Appetite Changes. absent: Stool Changes, Constipation, Diarrhea Genitourinary Female: absent: Dysuria, Frequency Musculoskeletal: Back Pain. absent: Neck Pain Skin: absent: Rash Neurological: absent: Headache, Dizziness Endocrine: absent: Polyuria Hemo/Lymphatic: absent: Easy Bleeding Psychiatric: absent: Depression Physical Exam - Physical Exam Narrative Physical Exam (Text): 07/05/18 15:58 Head: Atraumatic. Normocephalic. Eyes: PERRL. EOMI. Conjunctivae are not pale. Anicteric. ENT: Mucous membranes are dry. No stridor. No droolingt. Oropharynx is clear and symmetric. Neck: Supple. Full ROM. No JVD. No lymphadenopathy. Cardiovascular: Tachycardic. Distal pulses are 2+ and symmetric. Pulmonary/Chest: No evidence of respiratory distress. Clear to auscultation bilaterally. No wheezing, rales or rhonchi. Abdominal: Soft, nondistended. Surgical scar noted. Focal epigastric and RUQ pain. Rebound and guarding in epigastric region. No pulsatile masses. Back: No CVA tenderness. Extremities: No edema. No cyanosis. No clubbing. Full range of motion in all extremities. No calf tenderness. Skin: Skin is disphorectic. No petechiae. No purpura. Neurological: Alert, awake, and oriented. Motor and sensory exam intact. Psychiatric: Good eye contact. Tearful in pain. Vital Signs Reviewed: Yes Vital Signs Temp Pulse Resp BP Pulse Ox 07/05/18 15:30 98.0 F 102 H 18 108/69 96 Temperature: Afebrile Blood Pressure: Normal Pulse: Tachycardic Respiratory Rate: Normal Appearance: Positive for: Ill-Appearing, Uncomfortable Pain Distress: Severe Mental Status: Positive for: Alert and Oriented X 3 Medical Decision Making ED Course and Treatment: Patient with severe upper abdominal pain, intermittent, now constant since last night. On exam she is severely uncomfortable, diaphoretic. I reviewed iv pain medication options for her as she is breast feeding. She acknowledges risks and is agreeable to iv morphine for pain. Her lungs are clear. Oxygen saturations 98%. No calf pain. No pleuritic pain. No chest pain. 07/05/18 18:08 Procedure: Abdomen Ultrasound Impression: 1. Cholelithiasis identified within a distended gallbladder both no other acute findings to suggest acute cholecystitis. Clinically correlate further. See discussion above. 2. Otherwise unremarkable exam. Dictator: Bobo Latham MD 07/05/18 21:06 Re-exam, pain is slightly improved but remains severe. Abnormal labs and ultrasound findings reviewed with patient. Labs suggestive of possible pancreatitis, r/o cholecystitis. Based on severity of pain, senior electronics design engineer surgeon Dr. Zhang consulted. We have also consulted Dr. Hwang, senior electronics design engineer GI. Patient admitted for pancreatitis, cholecystitis. Risks, side effects of initiated antibiotics and pain mediation reviewed with patient. On re-exam, she denies any shortness of breath. Patient accepted to hospitalist service by Dr. Campos. - RAD Interpretation Saddle Stitch Operator: Radiologist - EKG Interpretation EKG Interpretation (Text): 07/05/18 21:05 EKG at 1744 normal sinus rhythm rate of 79 with incomplete RBBB Interpreted by ED Physician: Yes Type: 12 lead EKG - Scribe Statement The provider has reviewed the documentation as recorded by the Los Hammond All medical record entries made by the Los were at my direction and personally dictated by me. I have reviewed the chart and agree that the record accurately reflects my personal performance of the history, physical exam, medical decision making, and the department course for this patient. I have also personally directed, reviewed, and agree with the discharge instructions and disposition. Disposition/Present on Arrival - Present on Arrival Any Indicators Present on Arrival: No History of DVT/PE: No History of Uncontrolled Diabetes: No Urinary Catheter: No History of Decub. Ulcer: No History Surgical Site Infection Following: None - Disposition Have Diagnosis and Disposition been Completed?: Yes Diagnosis: Pancreatitis, Cholecystitis, Elevated liver enzymes Disposition: HOSPITALIZED Disposition Time: 17:35 Patient Plan: Admission Patient Problems: Current Active Problems Problem Status Onset Cholecystitis Acute Elevated liver enzymes Acute Pancreatitis Acute Condition: SERIOUS
[2018-07-05] MEDS ORDERED: Sodium Chloride 0.9% 1,000 ML IV STA (16:02)
[2018-07-05] MEDS ORDERED: Morphine 2 mg/ml ISec IVP STA (16:02)
[2018-07-05 16:16] LABS: BASO # 0.02 K/mm3 (0.0-2.0); BASO % 0.2 % (0.0-3.0); EOS # 0.2 (0.0-0.7); EOS % 1.5 % (1.5-5.0); GRAN # 7.92 (1.4-6.5); GRAN % 75.5 % (50.0-68.0); HEMOGLOBIN 14.3 g/dL (12.0-16.0); LYMPH # 1.4 (1.2-3.4); LYMPH % 13.1 % (22.0-35.0); MEAN CELL VOLUME 79.8 fl (80.0-105.0); MEAN CORPUSCULAR HEMOGLOBIN 27.7 pg (25.0-35.0); MEAN CORPUSCULAR HGB CONC 34.7 g/dl (31.0-37.0); MEAN PLATELET VOLUME 9.8 fl (7.0-11.0); MONO % 9.7 % (1.0-6.0); RBC 5.16 10^6/uL (3.5-6.1); RED CELL DISTRIBUTION WIDTH 13.8 % (11.5-14.5); WHITE BLOOD COUNT 10.5 10^3/ul (4.5-11.0)
[2018-07-05 16:20] LABS: URINE APPEARANCE CLEAR (CLEAR); URINE BILIRUBIN SMALL (NEGATIVE); URINE BLOOD NEGATIVE (NEGATIVE); URINE COLOR DARK YELLOW (YELLOW); URINE GLUCOSE (UA) NEGATIVE (NEGATIVE); URINE LEUKOCYTE ESTERASE NEGATIVE Leu/uL (NEGATIVE); URINE PROTEIN TRACE mg/dL (<30 mg/dL); URINE UROBILINOGEN 0.2 E.U./dL (<1 E.U./dL)
[2018-07-05 16:22] LABS: HCG,QUALITATIVE URINE NEGATIVE (NEGATIVE)
[2018-07-05 16:26] LABS: URINE BACTERIA TRACE (NEG); URINE RBC NEGATIVE /hpf (0-2); URINE WBC NEGATIVE /hpf (0-6)
[2018-07-05 16:28] LABS: INR 1.06; PARTIAL THROMBOPLASTIN TIME 32.5 Seconds (25.1-36.5); PROTHROMBIN TIME 12.1 SECONDS (9.4-12.5)
[2018-07-05 16:31] LABS: ALB/GLOB RATIO 1.2 (1.1-1.8); ALBUMIN 5.1 g/dL (3.0-4.8); BLOOD UREA NITROGEN 12 mg/dL (7-21); CALCIUM 10.3 mg/dL (8.4-10.5); GFR NON-AFRICAN AMERICAN > 60
[2018-07-05 16:37] LABS: TROPONIN I < 0.01 ng/mL
[2018-07-05 16:39] LABS: ALT/SGPT 1286 U/L (7-56); AST/SGOT 1246 U/L (14-36)
[2018-07-05 16:50] LABS: AMYLASE 3432 U/L (35-125)
[2018-07-05] MEDS ORDERED: cefTRIAXone 1 gm 1 GM/100 ML BAG IVPB STA (16:52)
[2018-07-05] MEDS ORDERED: metroNIDAZOLE IV 500 mg/100 ml 500 MG/100 ML BAG IV ONE (16:52)
[2018-07-05 17:18] LABS: LIPASE 49765 U/L (23-300)
[2018-07-05] MEDS ORDERED: Morphine 4 mg/ml ISec IVP STA (17:31)
--- NOTE | 2018-07-05 18:00 | US ---
Date of service: 07/05/2018 HISTORY: upper abdominal pain COMPARISON: Abdomen pelvis CT with contrast 06/11/2018. TECHNIQUE: Sonographic evaluation of the abdomen. FINDINGS: LIVER: Measures 13.5 cm. Normal echogenicity of the liver parenchyma. Maxwell's lobe identified. No mass. No intrahepatic bile duct dilatation. GALLBLADDER: There is moderate gallbladder distention with layering cholelithiasis at the dependent portion of the gallbladder diffusely. No mural thickening or pericholecystic fluid collection. No sonographic Perez sign reported either. COMMON BILE DUCT: Measures 3.7 mm. No stones. No dilatation. PANCREAS: Unremarkable as visualized. No mass. No ductal dilatation. RIGHT KIDNEY: Measures 11.7cm. Normal echogenicity. No calculus, mass, or hydronephrosis. LEFT KIDNEY: Measures 11.7cm. Normal echogenicity. No calculus, mass, or hydronephrosis. SPLEEN: Normal in size and contour, measuring 11.7 cm. No mass. AORTA: No aneurysmal dilatation. IVC: Unremarkable. OTHER FINDINGS: None. IMPRESSION: 1. Cholelithiasis identified within a distended gallbladder both no other acute findings to suggest acute cholecystitis. Clinically correlate further. See discussion above. 2. Otherwise unremarkable exam.
[2018-07-05 18:05] LABS: VENOUS BLOOD GAS BASE EXCESS -1.1 mmol/L (0.0-2.0); VENOUS BLOOD GAS PO2 44 mm/Hg (30-55)
[2018-07-05] MEDS ORDERED: HYDROmorphone 1 mg/ml ISec IVP PRN (18:14)
[2018-07-05] MEDS: Sodium Chloride 0.9% 1,000 ML IV SCH (18:33)
--- NOTE | 2018-07-05 18:56 | CP.PCM.HP ---
<Buffy Ferraro - Last Filed: 07/05/18 20:57> History of Present Illness - History of Present Illness History of Present Illness: PGY-1 Buffy Ferraro D.O. H&P for Dr. Campos's service: Opal Byrd is a 28 yo female with PMH of appendectomy 3 weeks ago who presented to the ED with RUQ pain. Pain began yesterday. She also had 2 episodes of nausea and vomiting, non-bloody. Patient is presently her 4 month old son, and, thus, did not take any medication for the pain. She also endorses SOB 2/2 to pain. Her nausea is persistent. She has not tolerated PO intake since yesterday. She denies chest pain, fevers and chills, diarrhea or constipation, or urinary symptoms. PMH: denies PSH: in 01/2018, lap appy in 06/2018 Meds: none All: NKA FH: reviewed and noncontributory SH: lives with and son denies alcohol, tobacco, illicit drug use PMD: [facility] Present on Admission - Present on Admission Any Indicators Present on Admission: No History of DVT/PE: No History of Uncontrolled Diabetes: No Urinary Catheter: No Decubitus Ulcer Present: No History Surgical Site Infection Following: None Review of Systems - Constitutional Constitutional: absent: Chills, Fatigue, Fever, Headache, Weakness - EENT Eyes: absent: Change in Vision Ears: absent: Decreased Hearing, Tinnitus Nose/Mouth/Throat: absent: Nasal Congestion, Sore Throat - Cardiovascular Cardiovascular: Dyspnea. absent: Chest Pain, Edema, Palpitations - Respiratory Respiratory: Dyspnea. absent: Cough, Chest Congestion - Gastrointestinal Gastrointestinal: As Per HPI, Abdominal Pain, Nausea, Vomiting. absent: Constipation, Diarrhea, Hematemesis - Genitourinary Genitourinary: Dysuria. absent: Difficulty Urinating, Hematuria - Reproductive: Female Additional comments: - Musculoskeletal Musculoskeletal: absent: Muscle Weakness, Numbness, Tingling - Integumentary Integumentary: absent: Lesions - Neurological Neurological: absent: Dizziness, Numbness, Focal Weakness, Headaches, Paresthesias, Syncope, Tingling, Tremor, Vertigo - Psychiatric Psychiatric: absent: Anxiety, Depression - Endocrine Endocrine: absent: Fatigue - Hematologic/Lymphatic Hematologic: absent: Easy Bleeding, Easy Bruising, Lymphadenopathy Past Patient History - Infectious Disease Hx of Infectious Diseases: None - Tetanus Immunizations Tetanus Immunization: Unknown - Past Medical History & Family History Past Medical History?: Yes Past Family History: Reviewed and not pertinent - Past Social History Smoking Status: Never Smoked Chewing Tobacco Use: No Cigar Use: No Alcohol: None Drugs: Denies Home Situation {Lives}: With Family (, son) - CARDIAC Hx Cardiac Disorders: No - PULMONARY Hx Respiratory Disorders: No - NEUROLOGICAL Hx Neurological Disorder: No - HEENT Hx HEENT Problems: No - RENAL Hx Chronic Kidney Disease: No - ENDOCRINE/METABOLIC Hx Endocrine Disorders: No - HEMATOLOGICAL/ONCOLOGICAL Hx Blood Disorders: No - INTEGUMENTARY Hx Dermatological Problems: No - MUSCULOSKELETAL/RHEUMATOLOGICAL Hx Musculoskeletal Disorders: No - GASTROINTESTINAL Hx Gastrointestinal Disorders: No - GENITOURINARY/GYNECOLOGICAL Hx Genitourinary Disorders: No - PSYCHIATRIC Hx Psychophysiologic Disorder: No Hx Substance Use: No - SURGICAL HISTORY Hx Appendectomy: Yes (June 2018) Hx Section: Yes (January 2018) - ANESTHESIA Hx Anesthesia Reactions: No Hx Malignant Hyperthermia: No Meds Allergies/Adverse Reactions: Allergies Allergy/AdvReac Type Severity Reaction Status Date / Time No Known Allergies Allergy Verified 07/05/18 15:36 Physical Exam - Head Exam Head Exam: ATRAUMATIC, NORMAL INSPECTION - Eye Exam Eye Exam: EOMI, Normal appearance, PERRL - ENT Exam ENT Exam: Mucous Membranes Moist, Normal Exam - Neck Exam Neck exam: Positive for: Normal Inspection - Respiratory Exam Respiratory Exam: Clear to Auscultation Bilateral, NORMAL BREATHING PATTERN. absent: Accessory Muscle Use, Respiratory Distress - Cardiovascular Exam Cardiovascular Exam: REGULAR RHYTHM, +S1, +S2 - GI/Abdominal Exam GI & Abdominal Exam: Guarding, Normal Bowel Sounds, Soft, Tenderness. absent: Rebound - Rectal Exam Rectal Exam: Deferred - Extremities Exam Extremities exam: Positive for: normal inspection, pedal pulses present. Negative for: pedal edema, tenderness - Back Exam Back exam: NORMAL INSPECTION - Neurological Exam Neurological exam: Alert, CN II-XII Intact, Oriented x3 - Psychiatric Exam Psychiatric exam: Anxious, Normal Affect, Normal Mood - Skin Skin Exam: Dry, Intact, Normal Color, Warm Results - Vital Signs Recent Vital Signs: Last Vital Signs Temp 98.0 F 07/05/18 15:30 Pulse 78 07/05/18 18:12 Resp 18 07/05/18 18:12 BP 101/68 07/05/18 18:12 Pulse Ox 98 07/05/18 18:12 - Labs Result Diagrams: 07/05/18 15:50 07/05/18 15:50 Labs: Laboratory Results - last 24 hr 07/05/18 07/05/18 07/05/18 15:50 15:50 15:50 WBC 10.5 RBC 5.16 Hgb 14.3 D Hct 41.2 MCV 79.8 L MCH 27.7 MCHC 34.7 RDW 13.8 Plt Count 297 MPV 9.8 Gran % 75.5 H Lymph % (Auto) 13.1 L [place] % (Auto) 9.7 H Eos % (Auto) 1.5 Baso % (Auto) 0.2 Gran # 7.92 H Lymph # (Auto) 1.4 [place] # (Auto) 1.0 H Eos # (Auto) 0.2 Baso # (Auto) 0.02 PT 12.1 INR 1.06 APTT 32.5 pO2 VBG pH VBG pCO2 VBG HCO3 VBG Total CO2 VBG O2 Sat (Calc) VBG Base Excess VBG Potassium Glucose Lactate FiO2 Sodium Potassium Chloride Carbon Dioxide Anion Gap BUN Creatinine Est GFR ( Amer) Est GFR (Non-Af Amer) Random Glucose Calcium Magnesium Total Bilirubin AST ALT Alkaline Phosphatase Lactate Dehydrogenase Total Creatine Kinase Troponin I Total Protein Albumin Globulin Albumin/Globulin Ratio Amylase Lipase Venous Blood Potassium Urine Color Dark yellow Urine Appearance Clear Urine pH 6.0 Ur Specific [place] 1.015 Urine Protein Trace H Urine Glucose (UA) Negative Urine Ketones Negative Urine Blood Negative Urine Nitrate Negative Urine Bilirubin Small H Urine Urobilinogen 0.2 Ur Leukocyte Esterase Negative Urine RBC Negative Urine WBC Negative Ur Epithelial Cells 1 - 3 Urine Bacteria Trace Urine HCG, Qual Negative 07/05/18 07/05/18 15:50 17:57 WBC RBC Hgb Hct MCV MCH MCHC RDW Plt Count MPV Gran % Lymph % (Auto) [place] % (Auto) Eos % (Auto) Baso % (Auto) Gran # Lymph # (Auto) [place] # (Auto) Eos # (Auto) Baso # (Auto) PT INR APTT pO2 44 VBG pH 7.30 L VBG pCO2 53.0 VBG HCO3 26.1 VBG Total CO2 27.7 VBG O2 Sat (Calc) 80.0 H VBG Base Excess -1.1 L VBG Potassium 4.0 Glucose 101 Lactate 0.9 FiO2 21.0 Sodium 141 138.0 Potassium 4.0 Chloride 102 108.0 H Carbon Dioxide 27 Anion Gap 16 BUN 12 Creatinine 0.6 L Est GFR ( Amer) > 60 Est GFR (Non-Af Amer) > 60 Random Glucose 113 H Calcium 10.3 Magnesium 2.1 Total Bilirubin 2.4 H AST 1246 H ALT 1286 H Alkaline Phosphatase 201 H D Lactate Dehydrogenase 3679 H Total Creatine Kinase 110 Troponin I < 0.01 Total Protein 9.4 H Albumin 5.1 H Globulin 4.3 Albumin/Globulin Ratio 1.2 Amylase 3432 H Lipase 52475 H Venous Blood Potassium 4.0 Urine Color Urine Appearance Urine pH Ur Specific [place] Urine Protein Urine Glucose (UA) Urine Ketones Urine Blood Urine Nitrate Urine Bilirubin Urine Urobilinogen Ur Leukocyte Esterase Urine RBC Urine WBC Ur Epithelial Cells Urine Bacteria Urine HCG, Qual Assessment & Plan - Assessment and Plan (Free Text) Assessment: Patient is a 28 yo female who presented with RUQ abdominal pain. Labs revealed elevated lipase and amylase. Abdominal u/s showed cholelithiasis with distended GB. Plan: RUQ Abdominal pain- 2/2 gallstone pancreatitis - Abd u/s: cholelithiasis with distended GB - No leukocytosis, afebrile - Lipase 49,765, amylase 3432, LDH 3679 - AST 1246, ALT 1286 - Accuchecks Q4H, ISS low - MRCP pending - NS @ 200 - NPO - Rocephin 1 g IV daily (started 07/05) - Flagyl 500 mg IV Q8H (started 07/05) - Zofran 4 mg IV Q6H PRN - Dilaudid 1 mg Q4H PRN - Surgery consulted (Vicente) - GI consulted (Eri) Discussed with patient the risks of pain medications and antibiotics with . Patient understands that she is advised to not breastfeed until no longer taking these medications. She is able to pump but then discard the milk. IVF: NS @ 200 Diet: NPO GI ppx: Protonix 40 mg IV daily VTE ppx: Lovenox 40 mg SC daily Code status: full code Case discussed with attending, Dr. Campos. <Amie Campos - Last Filed: 07/06/18 18:18> Results - Vital Signs Recent Vital Signs: Last Vital Signs Temp 98.1 F 07/06/18 16:23 Pulse 71 07/06/18 16:23 Resp 18 07/06/18 16:23 BP 99/66 L 07/06/18 16:23 Pulse Ox 95 07/06/18 16:23 - Labs Result Diagrams: 07/06/18 06:00 07/06/18 06:00 Labs: Laboratory Results - last 24 hr 07/05/18 07/05/18 07/05/18 17:57 21:10 22:25 WBC RBC Hgb Hct MCV MCH MCHC RDW Plt Count MPV Gran % Lymph % (Auto) [place] % (Auto) Eos % (Auto) Baso % (Auto) Gran # Lymph # (Auto) [place] # (Auto) Eos # (Auto) Baso # (Auto) pCO2 pO2 44 HCO3 ABG pH ABG Total CO2 ABG O2 Saturation ABG O2 Content ABG Base Excess ABG Hemoglobin ABG Carboxyhemoglobin POC ABG HHb (Measured) ABG Methemoglobin ABG O2 Capacity VBG pH 7.30 L VBG pCO2 53.0 VBG HCO3 26.1 VBG Total CO2 27.7 VBG O2 Sat (Calc) 80.0 H VBG Base Excess -1.1 L VBG Potassium 4.0 Hgb O2 Saturation Sodium 138.0 Chloride 108.0 H Glucose 101 Lactate 0.9 FiO2 21.0 Potassium Carbon Dioxide Anion Gap BUN Creatinine Est GFR ( Amer) Est GFR (Non-Af Amer) POC Glucose (mg/dL) 77 83 Random Glucose Calcium Phosphorus Magnesium Total Bilirubin AST ALT Alkaline Phosphatase Total Protein Albumin Globulin Albumin/Globulin Ratio Triglycerides Cholesterol LDL Cholesterol Direct HDL Cholesterol Lipase Venous Blood Potassium 4.0 07/06/18 07/06/18 07/06/18 03:28 05:30 06:00 WBC 7.6 D RBC 4.14 Hgb 11.2 L D Hct 33.3 L MCV 80.4 MCH 27.1 MCHC 33.6 RDW 14.0 Plt Count 227 MPV 9.5 Gran % 72.0 H Lymph % (Auto) 21.3 L [place] % (Auto) 4.7 Eos % (Auto) 1.7 Baso % (Auto) 0.3 Gran # 5.48 Lymph # (Auto) 1.6 [place] # (Auto) 0.4 Eos # (Auto) 0.1 Baso # (Auto) 0.02 pCO2 41 pO2 83.0 HCO3 24.3 ABG pH 7.38 ABG Total CO2 25.6 ABG O2 Saturation 98.1 H ABG O2 Content 15.2 ABG Base Excess -0.8 ABG Hemoglobin 11.3 L ABG Carboxyhemoglobin 2.0 H POC ABG HHb (Measured) 1.8 ABG Methemoglobin 0.9 ABG O2 Capacity 15.5 L VBG pH VBG pCO2 VBG HCO3 VBG Total CO2 VBG O2 Sat (Calc) VBG Base Excess VBG Potassium Hgb O2 Saturation 95.4 Sodium Chloride Glucose Lactate FiO2 21.0 Potassium Carbon Dioxide Anion Gap BUN Creatinine Est GFR ( Amer) Est GFR (Non-Af Amer) POC Glucose (mg/dL) 93 Random Glucose Calcium Phosphorus Magnesium Total Bilirubin AST ALT Alkaline Phosphatase Total Protein Albumin Globulin Albumin/Globulin Ratio Triglycerides Cholesterol LDL Cholesterol Direct HDL Cholesterol Lipase Venous Blood Potassium 07/06/18 07/06/18 07/06/18 06:00 07:54 09:33 WBC RBC Hgb Hct MCV MCH MCHC RDW Plt Count MPV Gran % Lymph % (Auto) [place] % (Auto) Eos % (Auto) Baso % (Auto) Gran # Lymph # (Auto) [place] # (Auto) Eos # (Auto) Baso # (Auto) pCO2 pO2 HCO3 ABG pH ABG Total CO2 ABG O2 Saturation ABG O2 Content ABG Base Excess ABG Hemoglobin ABG Carboxyhemoglobin POC ABG HHb (Measured) ABG Methemoglobin ABG O2 Capacity VBG pH VBG pCO2 VBG HCO3 VBG Total CO2 VBG O2 Sat (Calc) VBG Base Excess VBG Potassium Hgb O2 Saturation Sodium 142 Chloride 109 H Glucose Lactate FiO2 Potassium 3.8 Carbon Dioxide 23 Anion Gap 14 BUN 13 Creatinine 0.5 L Est GFR ( Amer) > 60 Est GFR (Non-Af Amer) > 60 POC Glucose (mg/dL) 78 Random Glucose 88 Calcium 8.9 Phosphorus 3.8 Magnesium 2.1 Total Bilirubin 0.9 AST 351 H D ALT 723 H Alkaline Phosphatase 162 H Total Protein 7.4 Albumin 4.0 Globulin 3.3 Albumin/Globulin Ratio 1.2 Triglycerides 99 Cholesterol 162 LDL Cholesterol Direct 91 HDL Cholesterol 39 Lipase 1858 H Venous Blood Potassium 07/06/18 11:30 WBC RBC Hgb Hct MCV MCH MCHC RDW Plt Count MPV Gran % Lymph % (Auto) [place] % (Auto) Eos % (Auto) Baso % (Auto) Gran # Lymph # (Auto) [place] # (Auto) Eos # (Auto) Baso # (Auto) pCO2 pO2 HCO3 ABG pH ABG Total CO2 ABG O2 Saturation ABG O2 Content ABG Base Excess ABG Hemoglobin ABG Carboxyhemoglobin POC ABG HHb (Measured) ABG Methemoglobin ABG O2 Capacity VBG pH VBG pCO2 VBG HCO3 VBG Total CO2 VBG O2 Sat (Calc) VBG Base Excess VBG Potassium Hgb O2 Saturation Sodium Chloride Glucose Lactate FiO2 Potassium Carbon Dioxide Anion Gap BUN Creatinine Est GFR ( Amer) Est GFR (Non-Af Amer) POC Glucose (mg/dL) 57 L Random Glucose Calcium Phosphorus Magnesium Total Bilirubin AST ALT Alkaline Phosphatase Total Protein Albumin Globulin Albumin/Globulin Ratio Triglycerides Cholesterol LDL Cholesterol Direct HDL Cholesterol Lipase Venous Blood Potassium Attending/Attestation - Attestation I have personally seen and examined this patient.: Yes I have fully participated in the care of the patient.: Yes I have reviewed all pertinent clinical information: Yes Notes (Text): 07/06/18 18:15 attending note; Patient seen and examined with the resident in ER. Patient's by the bedside. Patient is a 28 yo female with PMH of appendectomy 3 weeks ago who presented to the ED with RUQ pain. Pain began yesterday. She also had 2 episodes of nausea and vomiting, non-bloody. abdominal ultrasound showed gallbladder stones With distended gallbladder. LFTs elevated. started on IV Rocephin and Flagyl. Acute pancreatitis secondary to gallstones. Nothing by mouth. IV fluids. Surgery evaluation requested. Rule out CBD stone since elevated LFTs. MRCP ordered. GI evaluation requested. Pain management with IV Dilaudid. patient is currently breast-feeding her 3-month-old baby. since patient is on high dose of pain medication and antibiotics advised to avoid breast-feeding. The diagnosis, treatment plan discussed with patient in detail. 07/06/18 18:17
--- NOTE | 2018-07-05 19:18 | CP.PCM.CON ---
<Becca Snowdenah - Last Filed: 07/06/18 08:53> History of Present Illness - History of Present Illness History of Present Illness: Consult Note For Consulted for Gallstone Pancreatitis Opal Qiu is a 28 yr ol female with no PMH and PSH of recent c section delivery January 2018 and Appendectomy June 2018 and unbilical hernia repair who presents to the [facility] ED with complaints of RUQ abdominal pain nausea and Nonbloody nonbilious vomiting x3 since yesterday morning. She additionally reports becoming diaphoretic this morning but has not had an episode of diaphoresis since. She otherwise denies MG, CP, SOB, changes in stool, dysuria and extremity pain. Vitals upon exam were pulse 84 BP 101/68 RR18 pO2 99% on RA. PMH: denies PSH: , appendectomy, umbilical hernia repair All: NKDA Social: denies Review of Systems - Review of Systems All systems: reviewed and no additional remarkable complaints except (as per HPI) Past Patient History - Infectious Disease Hx of Infectious Diseases: None - Past Social History Smoking Status: Never Smoked - CARDIAC Hx Cardiac Disorders: No - PULMONARY Hx Respiratory Disorders: No - NEUROLOGICAL Hx Neurological Disorder: No - HEENT Hx HEENT Problems: No - RENAL Hx Chronic Kidney Disease: No - ENDOCRINE/METABOLIC Hx Endocrine Disorders: No - HEMATOLOGICAL/ONCOLOGICAL Hx Blood Disorders: No - INTEGUMENTARY Hx Dermatological Problems: No - MUSCULOSKELETAL/RHEUMATOLOGICAL Hx Musculoskeletal Disorders: No - GASTROINTESTINAL Hx Gastrointestinal Disorders: No - GENITOURINARY/GYNECOLOGICAL Hx Genitourinary Disorders: No - PSYCHIATRIC Hx Psychophysiologic Disorder: No Hx Substance Use: No - SURGICAL HISTORY Hx Appendectomy: Yes (June 2018) Hx Section: Yes (January 2018) - ANESTHESIA Hx Anesthesia Reactions: No Hx Malignant Hyperthermia: No Meds Allergies/Adverse Reactions: Allergies Allergy/AdvReac Type Severity Reaction Status Date / Time No Known Allergies Allergy Verified 07/05/18 15:36 - Medications Medications: Current Medications Hydromorphone HCl (Dilaudid) 1 mg IVP Q4H PRN PRN Reason: Pain, severe (8-10) Metronidazole (Flagyl) 500 mg in 100 mls @ 100 mls/hr IVPB Q8 ELISABETH; Protocol Ceftriaxone Sodium (Rocephin 1 Gram Ivpb) 1 gm in 100 mls @ 100 mls/hr IVPB DAILY ELISABETH; Protocol Sodium Chloride (Sodium Chloride 0.9%) 1,000 mls @ 200 mls/hr IV .Q5H ELISABETH Last Admin: 07/05/18 18:33 Dose: 200 mls/hr Ondansetron HCl (Zofran Inj) 4 mg IVP Q6 PRN PRN Reason: Nausea/Vomiting Pantoprazole Sodium (Protonix Inj) 40 mg IVP DAILY ELISABETH Physical Exam - Constitutional Appears: Well, Non-toxic, No Acute Distress - Head Exam Head Exam: ATRAUMATIC, NORMOCEPHALIC - Eye Exam Eye Exam: EOMI - ENT Exam ENT Exam: Mucous Membranes Moist - Respiratory Exam Respiratory Exam: Clear to Auscultation Bilateral, NORMAL BREATHING PATTERN. absent: Rales, Rhonchi, Wheezes - Cardiovascular Exam Cardiovascular Exam: REGULAR RHYTHM. absent: Tachycardia - GI/Abdominal Exam GI & Abdominal Exam: Guarding, Soft, Tenderness (diffusely tender greatest in the RUQ). absent: Distended, Hernia, Rigid - Extremities Exam Extremities exam: Positive for: pedal pulses present. Negative for: calf tenderness, pedal edema, tenderness - Neurological Exam Neurological exam: Alert, CN II-XII Intact, Oriented x3 - Psychiatric Exam Psychiatric exam: Normal Affect, Normal Mood - Skin Skin Exam: Dry (non diaphoretic), Intact, Normal Color, Warm Results - Vital Signs Recent Vital Signs: Last Vital Signs Temp 98.0 F 07/05/18 15:30 Pulse 78 07/05/18 18:12 Resp 18 07/05/18 18:12 BP 101/68 07/05/18 18:12 Pulse Ox 98 07/05/18 18:12 - Labs Result Diagrams: 07/05/18 15:50 07/05/18 15:50 Labs: Laboratory Results - last 24 hr 07/05/18 07/05/18 07/05/18 15:50 15:50 15:50 WBC 10.5 RBC 5.16 Hgb 14.3 D Hct 41.2 MCV 79.8 L MCH 27.7 MCHC 34.7 RDW 13.8 Plt Count 297 MPV 9.8 Gran % 75.5 H Lymph % (Auto) 13.1 L [place] % (Auto) 9.7 H Eos % (Auto) 1.5 Baso % (Auto) 0.2 Gran # 7.92 H Lymph # (Auto) 1.4 [place] # (Auto) 1.0 H Eos # (Auto) 0.2 Baso # (Auto) 0.02 PT 12.1 INR 1.06 APTT 32.5 pO2 VBG pH VBG pCO2 VBG HCO3 VBG Total CO2 VBG O2 Sat (Calc) VBG Base Excess VBG Potassium Glucose Lactate FiO2 Sodium Potassium Chloride Carbon Dioxide Anion Gap BUN Creatinine Est GFR ( Amer) Est GFR (Non-Af Amer) Random Glucose Calcium Magnesium Total Bilirubin AST ALT Alkaline Phosphatase Lactate Dehydrogenase Total Creatine Kinase Troponin I Total Protein Albumin Globulin Albumin/Globulin Ratio Amylase Lipase Venous Blood Potassium Urine Color Dark yellow Urine Appearance Clear Urine pH 6.0 Ur Specific [place] 1.015 Urine Protein Trace H Urine Glucose (UA) Negative Urine Ketones Negative Urine Blood Negative Urine Nitrate Negative Urine Bilirubin Small H Urine Urobilinogen 0.2 Ur Leukocyte Esterase Negative Urine RBC Negative Urine WBC Negative Ur Epithelial Cells 1 - 3 Urine Bacteria Trace Urine HCG, Qual Negative 07/05/18 07/05/18 15:50 17:57 WBC RBC Hgb Hct MCV MCH MCHC RDW Plt Count MPV Gran % Lymph % (Auto) [place] % (Auto) Eos % (Auto) Baso % (Auto) Gran # Lymph # (Auto) [place] # (Auto) Eos # (Auto) Baso # (Auto) PT INR APTT pO2 44 VBG pH 7.30 L VBG pCO2 53.0 VBG HCO3 26.1 VBG Total CO2 27.7 VBG O2 Sat (Calc) 80.0 H VBG Base Excess -1.1 L VBG Potassium 4.0 Glucose 101 Lactate 0.9 FiO2 21.0 Sodium 141 138.0 Potassium 4.0 Chloride 102 108.0 H Carbon Dioxide 27 Anion Gap 16 BUN 12 Creatinine 0.6 L Est GFR ( Amer) > 60 Est GFR (Non-Af Amer) > 60 Random Glucose 113 H Calcium 10.3 Magnesium 2.1 Total Bilirubin 2.4 H AST 1246 H ALT 1286 H Alkaline Phosphatase 201 H D Lactate Dehydrogenase 3679 H Total Creatine Kinase 110 Troponin I < 0.01 Total Protein 9.4 H Albumin 5.1 H Globulin 4.3 Albumin/Globulin Ratio 1.2 Amylase 3432 H Lipase 19954 H Venous Blood Potassium 4.0 Urine Color Urine Appearance Urine pH Ur Specific [place] Urine Protein Urine Glucose (UA) Urine Ketones Urine Blood Urine Nitrate Urine Bilirubin Urine Urobilinogen Ur Leukocyte Esterase Urine RBC Urine WBC Ur Epithelial Cells Urine Bacteria Urine HCG, Qual Assessment & Plan - Assessment and Plan (Free Text) Assessment: 28 yr female with RUQ pain, nausea/vomiting, gallstones on abdominal US, elevated lipase, amylase bilirubin, AST and ALT, likely suffering from Gallstone pancreatitis Plan: Gallstone Pancreatitis * begin fluid resuscitation with NS at 150 ml/hr, monitor for hypotension and tachycardia * Ct scan in Am with IV pancreatic protocol * strict I/O, maintain UOP > 0.5-1 cc/kg/hr, titrate fluid rate to maintain UOP, place [place] if needed * repeat CBC, CMP, mg, phos in AM * replete electrolytes as needed * Dilaudid 1mg Q4hr PRN * glucose checks Q2hrs * Zofran PRN for Nausea * NPO place NGt if patient begins vomiting DVT ppx Lovenox, SCDs Patient discussed with Dr. Zhang all further recs per him Amarilis Snowden, PGY 1 - Date & Time Date: 07/05/18 Time: 17:58 <Naman Zhang - Last Filed: 07/07/18 18:52> Meds - Medications Medications: Current Medications Dextrose (Dextrose 50% Inj) 0 ml IV STAT PRN; Protocol PRN Reason: Hypoglycemia Protocol Enoxaparin Sodium (Lovenox) 40 mg SC DAILY ELISABETH; Protocol Last Admin: 07/07/18 09:10 Dose: 40 mg Hydromorphone HCl (Dilaudid) 0.5 mg IVP Q4H PRN PRN Reason: Pain, severe (8-10) Metronidazole (Flagyl) 500 mg in 100 mls @ 100 mls/hr IVPB Q8 ELISABETH; Protocol Last Admin: 07/07/18 13:46 Dose: 100 mls/hr Ceftriaxone Sodium (Rocephin 1 Gram Ivpb) 1 gm in 100 mls @ 100 mls/hr IVPB DAILY ELISABETH; Protocol Last Admin: 07/07/18 09:10 Dose: 100 mls/hr Dextrose (Dextrose 5% In Water 1000 Ml) 1,000 mls @ 0 mls/hr IV .Q0M PRN; Protocol PRN Reason: Hypoglycemia Protocol Dextrose/Sodium Chloride (Dextrose 5%/0.9% Ns 1000 Ml) 1,000 mls @ 150 mls/hr IV .Q6H40M [facility] Last Admin: 07/07/18 18:04 Dose: 150 mls/hr Insulin Human Regular (Humulin R Low) 0 units SC ACHS [facility]; Protocol Last Admin: 07/07/18 18:27 Dose: Not Given Ondansetron HCl (Zofran Inj) 4 mg IVP Q6 PRN PRN Reason: Nausea/Vomiting Last Admin: 07/06/18 00:45 Dose: 4 mg Pantoprazole Sodium (Protonix Inj) 40 mg IVP DAILY [facility] Last Admin: 07/07/18 09:10 Dose: 40 mg Results - Vital Signs Recent Vital Signs: Last Vital Signs Temp 98.7 F 07/07/18 17:04 Pulse 63 07/07/18 17:04 Resp 20 07/07/18 17:04 BP 111/74 07/07/18 17:04 Pulse Ox 99 07/07/18 17:04 - Labs Result Diagrams: 07/07/18 05:00 07/07/18 05:00 Labs: Laboratory Results - last 24 hr 07/06/18 07/06/18 07/07/18 16:29 21:30 05:00 WBC 6.3 RBC 3.81 Hgb 10.3 L Hct 30.8 L MCV 80.8 MCH 27.0 MCHC 33.4 RDW 13.9 Plt Count 220 MPV 9.9 Gran % 54.9 Lymph % (Auto) 33.8 [place] % (Auto) 7.6 H Eos % (Auto) 3.2 Baso % (Auto) 0.5 Gran # 3.48 Lymph # (Auto) 2.1 [place] # (Auto) 0.5 Eos # (Auto) 0.2 Baso # (Auto) 0.03 Sodium Potassium Chloride Carbon Dioxide Anion Gap BUN Creatinine Est GFR ( Amer) Est GFR (Non-Af Amer) POC Glucose (mg/dL) 69 77 Random Glucose Calcium Phosphorus Magnesium Total Bilirubin AST ALT Alkaline Phosphatase Total Protein Albumin Globulin Albumin/Globulin Ratio Lipase 07/07/18 07/07/18 07/07/18 05:00 07:21 09:00 WBC RBC Hgb Hct MCV MCH MCHC RDW Plt Count MPV Gran % Lymph % (Auto) [place] % (Auto) Eos % (Auto) Baso % (Auto) Gran # Lymph # (Auto) [place] # (Auto) Eos # (Auto) Baso # (Auto) Sodium 142 Potassium 3.8 Chloride 110 H Carbon Dioxide 25 Anion Gap 12 BUN 12 Creatinine 0.6 L Est GFR ( Amer) > 60 Est GFR (Non-Af Amer) > 60 POC Glucose (mg/dL) 71 Random Glucose 86 Calcium 9.6 Phosphorus 3.7 Magnesium 2.1 Total Bilirubin 0.6 AST 115 H D ALT 468 H Alkaline Phosphatase 137 H Total Protein 7.3 Albumin 4.0 Globulin 3.2 Albumin/Globulin Ratio 1.2 Lipase 170 07/07/18 11:24 WBC RBC Hgb Hct MCV MCH MCHC RDW Plt Count MPV Gran % Lymph % (Auto) [place] % (Auto) Eos % (Auto) Baso % (Auto) Gran # Lymph # (Auto) [place] # (Auto) Eos # (Auto) Baso # (Auto) Sodium Potassium Chloride Carbon Dioxide Anion Gap BUN Creatinine Est GFR ( Amer) Est GFR (Non-Af Amer) POC Glucose (mg/dL) 85 Random Glucose Calcium Phosphorus Magnesium Total Bilirubin AST ALT Alkaline Phosphatase Total Protein Albumin Globulin Albumin/Globulin Ratio Lipase Assessment & Plan - Assessment and Plan (Free Text) Plan: I personally saw and examined the patient with the resident staff and agree with the above assessment and plan. No need for CT. MRCP to be performed.
[2018-07-05] MEDS ORDERED: Dextrose 50% SYRINGE Inj (50 ml) IV PRN (21:37)
[2018-07-05] MEDS: metroNIDAZOLE IV 500 mg/100 ml 500 MG/100 ML BAG IVPB SCH (22:16)
[2018-07-05] MEDS: Insulin Reg-LOW-Coverage SC SCH (22:16)
--- NOTE | 2018-07-05 23:21 | CARD ---
APPROVED REPORT Date of service: 07/05/2018 EKG Measurement Heart [id number] <Conclusion> Normal sinus rhythm Incomplete right bundle branch block Borderline ECG
[2018-07-06] MEDS ORDERED: Influenza Vaccine 60 mcg/0.5 mL SYR (4YR UP) IM ONE (01:05)
[2018-07-06] MEDS ORDERED: Pneumococcal 23-Valent Vaccine IM ONE (01:05)
[2018-07-06] MEDS: Sodium Chloride 0.9% 1,000 ML IV SCH (03:10)
[2018-07-06] MEDS: metroNIDAZOLE IV 500 mg/100 ml 500 MG/100 ML BAG IVPB SCH ×3 (05:27→21:22)
[2018-07-06 05:37] LABS: ARTERIAL BLOOD GAS HCO3 24.3 mmol/L (21-28); ARTERIAL BLOOD GAS HEMOGLOBIN 11.3 g/dL (11.7-17.4); ARTERIAL BLOOD GAS O2 CAPACITY 15.5 mL/dl (16-24); ARTERIAL BLOOD GAS O2 CONTENT 15.2 ML/dl (15-23); ARTERIAL BLOOD GAS O2 SAT 98.1 % (95-98); ARTERIAL BLOOD GAS PCO2 41 mm/Hg (35-45); ARTERIAL BLOOD GAS PH 7.38 (7.35-7.45); ARTERIAL BLOOD GAS TCO2 25.6 mmol.L (22-28)
[2018-07-06 06:48] LABS: BASO # 0.02 K/mm3 (0.0-2.0); BASO % 0.3 % (0.0-3.0); EOS # 0.1 (0.0-0.7); EOS % 1.7 % (1.5-5.0); GRAN # 5.48 (1.4-6.5); HEMOGLOBIN 11.2 g/dL (12.0-16.0); LYMPH # 1.6 (1.2-3.4); LYMPH % 21.3 % (22.0-35.0); MEAN CELL VOLUME 80.4 fl (80.0-105.0); MEAN CORPUSCULAR HEMOGLOBIN 27.1 pg (25.0-35.0); MEAN CORPUSCULAR HGB CONC 33.6 g/dl (31.0-37.0); MEAN PLATELET VOLUME 9.5 fl (7.0-11.0); MONO # 0.4 (0.1-0.6); MONO % 4.7 % (1.0-6.0); RBC 4.14 10^6/uL (3.5-6.1); WHITE BLOOD COUNT 7.6 10^3/ul (4.5-11.0)
[2018-07-06 06:59] LABS: LDL CHOLESTEROL 91 mg/dL (0-129)
[2018-07-06 07:24] LABS: ALB/GLOB RATIO 1.2 (1.1-1.8); ALT/SGPT 723 U/L (7-56); AST/SGOT 351 U/L (14-36); BLOOD UREA NITROGEN 13 mg/dL (7-21); CALCIUM 8.9 mg/dL (8.4-10.5); GFR NON-AFRICAN AMERICAN > 60; HDL CHOLESTEROL 39 mg/dL (29-60)
[2018-07-06] MEDS: Insulin Reg-LOW-Coverage SC SCH ×4 (07:30→21:26)
--- NOTE | 2018-07-06 08:49 | CP.PCM.PN ---
<Amarilis Snowden - Last Filed: 07/06/18 09:34> Subjective - Date & Time of Evaluation Date of Evaluation: 07/06/18 Time of Evaluation: 07:35 - Subjective Subjective: General surgery progress note for Dr. Zhang Patient seen and examined at bedside this am. She is resting comfortably and states that she has been able to get up out of bed to the bathroom easily overnight. She does endorse continued Nausea and one episode of vomiting this am. She is passing flatus but no BM. She otherwise denies MG, CP, SOB, Dysuria, diarrhea, and extremity pain. Objective - Vital Signs/Intake and Output Vital Signs (last 24 hours): Temp Pulse Resp BP Pulse Ox 98.4 F 86 20 127/86 98 07/06/18 00:00 07/06/18 06:00 07/06/18 00:00 07/06/18 00:00 07/06/18 00:00 Intake and Output: 07/06/18 07/06/18 06:59 18:59 Intake Total 1500 Balance 1500 - Medications Medications: Current Medications Dextrose (Dextrose 50% Inj) 0 ml IV STAT PRN; Protocol PRN Reason: Hypoglycemia Protocol Enoxaparin Sodium (Lovenox) 40 mg SC DAILY [facility]; Protocol Hydromorphone HCl (Dilaudid) 1 mg IVP Q4H PRN PRN Reason: Pain, severe (8-10) Last Admin: 07/06/18 00:41 Dose: 1 mg Metronidazole (Flagyl) 500 mg in 100 mls @ 100 mls/hr IVPB Q8 [facility]; Protocol Last Admin: 07/06/18 05:27 Dose: 100 mls/hr Ceftriaxone Sodium (Rocephin 1 Gram Ivpb) 1 gm in 100 mls @ 100 mls/hr IVPB DAILY [facility]; Protocol Sodium Chloride (Sodium Chloride 0.9%) 1,000 mls @ 200 mls/hr IV .Q5H [facility] Last Admin: 07/06/18 03:10 Dose: 200 mls/hr Dextrose (Dextrose 5% In Water 1000 Ml) 1,000 mls @ 0 mls/hr IV .Q0M PRN; Protocol PRN Reason: Hypoglycemia Protocol Insulin Human Regular (Humulin R Low) 0 units SC ACHS [facility]; Protocol Last Admin: 07/05/18 22:16 Dose: Not Given Ondansetron HCl (Zofran Inj) 4 mg IVP Q6 PRN PRN Reason: Nausea/Vomiting Last Admin: 07/06/18 00:45 Dose: 4 mg Pantoprazole Sodium (Protonix Inj) 40 mg IVP DAILY [facility] - Labs Labs: 07/06/18 06:00 07/06/18 06:00 PT 12.1 SECONDS (9.4-12.5) 07/05/18 15:50 INR 1.06 07/05/18 15:50 APTT 32.5 Seconds (25.1-36.5) 07/05/18 15:50 - Constitutional Appears: Well, Non-toxic, No Acute Distress - Head Exam Head Exam: ATRAUMATIC, NORMOCEPHALIC - Eye Exam Eye Exam: EOMI - ENT Exam ENT Exam: Mucous Membranes Moist - Respiratory Exam Respiratory Exam: NORMAL BREATHING PATTERN - Cardiovascular Exam Cardiovascular Exam: REGULAR RHYTHM - GI/Abdominal Exam GI & Abdominal Exam: Guarding (RUQ guarding), Soft, Tenderness (diffuse mild tenderness, moderate in RUQ). absent: Distended, Rebound - Extremities Exam Extremities Exam: absent: Calf Tenderness, Pedal Edema, Tenderness - Neurological Exam Neurological Exam: Alert, Awake, Normal Gait, Oriented x3 - Psychiatric Exam Psychiatric exam: Normal Affect, Normal Mood - Skin Skin Exam: Dry, Intact, Normal Color, Warm Assessment and Plan - Assessment and Plan (Free Text) Assessment: 28 yo female 4 months with gallstone pancreatitis Plan: Gallstone Pancreatitis c/w fluid resuscitation with NS at 150 ml/hr, monitor for hypotension and tachycardia f/u MRCP results repeat lipase this am strict I/O, maintain UOP > 0.5-1 cc/kg/hr, titrate fluid rate to maintain UOP, place [facility] if needed repeat CBC, CMP, mg, phos in AM replete electrolytes as needed Dilaudid 1mg Q4hr PRN glucose checks ACHS Zofran PRN for Nausea NPO place NGT if patient begins vomiting consistently DVT ppx Lovenox, SCDs Patient discussed with Dr. Zhang all further recs per him Amarilis Snowden, PGY 1 <Naman Zhang - Last Filed: 07/07/18 18:50> Objective - Vital Signs/Intake and Output Vital Signs (last 24 hours): Temp Pulse Resp BP Pulse Ox 98.7 F 63 20 111/74 99 07/07/18 17:04 07/07/18 17:04 07/07/18 17:04 07/07/18 17:04 07/07/18 17:04 Intake and Output: 07/07/18 07/07/18 06:59 18:59 Intake Total 1200 Output Total 1150 Balance 50 - Medications Medications: Current Medications Dextrose (Dextrose 50% Inj) 0 ml IV STAT PRN; Protocol PRN Reason: Hypoglycemia Protocol Enoxaparin Sodium (Lovenox) 40 mg SC DAILY [facility]; Protocol Last Admin: 07/07/18 09:10 Dose: 40 mg Hydromorphone HCl (Dilaudid) 0.5 mg IVP Q4H PRN PRN Reason: Pain, severe (8-10) Metronidazole (Flagyl) 500 mg in 100 mls @ 100 mls/hr IVPB Q8 [facility]; Protocol Last Admin: 07/07/18 13:46 Dose: 100 mls/hr Ceftriaxone Sodium (Rocephin 1 Gram Ivpb) 1 gm in 100 mls @ 100 mls/hr IVPB DAILY [facility]; Protocol Last Admin: 07/07/18 09:10 Dose: 100 mls/hr Dextrose (Dextrose 5% In Water 1000 Ml) 1,000 mls @ 0 mls/hr IV .Q0M PRN; Protocol PRN Reason: Hypoglycemia Protocol Dextrose/Sodium Chloride (Dextrose 5%/0.9% Ns 1000 Ml) 1,000 mls @ 150 mls/hr IV .Q6H40M [facility] Last Admin: 07/07/18 18:04 Dose: 150 mls/hr Insulin Human Regular (Humulin R Low) 0 units SC ACHS [facility]; Protocol Last Admin: 07/07/18 18:27 Dose: Not Given Ondansetron HCl (Zofran Inj) 4 mg IVP Q6 PRN PRN Reason: Nausea/Vomiting Last Admin: 07/06/18 00:45 Dose: 4 mg Pantoprazole Sodium (Protonix Inj) 40 mg IVP DAILY [facility] Last Admin: 07/07/18 09:10 Dose: 40 mg - Labs Labs: 07/07/18 05:00 07/07/18 05:00 PT 12.1 SECONDS (9.4-12.5) 07/05/18 15:50 INR 1.06 07/05/18 15:50 APTT 32.5 Seconds (25.1-36.5) 07/05/18 15:50 Assessment and Plan - Assessment and Plan (Free Text) Plan: I personally saw and examined the patient with the resident staff and agree with the above assessment and plan. I personally reviewed the available diagnostic images and imaging reports. 28 female gallstone pancreatitis. continue supportive measure above. Will plan for lap cholecystectomy this admission when pancreatitis resolves.
--- NOTE | 2018-07-06 09:51 | CP.PCM.PN ---
<Buffy Ferraro - Last Filed: 07/06/18 15:23> Subjective - Date & Time of Evaluation Date of Evaluation: 07/06/18 Time of Evaluation: 10:15 - Subjective Subjective: PGY-1 Buffy Ferraro D.O. Medicine progress note for Dr. Campos's service: Patient was seen and examined this morning. Her pain is well-controlled. She has intermittent nausea but no more vomiting. Her SOB is resolved. She denies chest pain, fever and chills, urinary symptoms, diarrhea, or constipation. Objective - Vital Signs/Intake and Output Vital Signs (last 24 hours): Temp Pulse Resp BP Pulse Ox 98.7 F 88 20 93/57 L 95 07/06/18 08:51 07/06/18 08:51 07/06/18 08:51 07/06/18 08:51 07/06/18 08:51 Intake and Output: 07/06/18 07/06/18 06:59 18:59 Intake Total 1500 Balance 1500 - Medications Medications: Current Medications Dextrose (Dextrose 50% Inj) 0 ml IV STAT PRN; Protocol PRN Reason: Hypoglycemia Protocol Enoxaparin Sodium (Lovenox) 40 mg SC DAILY [facility]; Protocol Hydromorphone HCl (Dilaudid) 1 mg IVP Q4H PRN PRN Reason: Pain, severe (8-10) Last Admin: 07/06/18 00:41 Dose: 1 mg Metronidazole (Flagyl) 500 mg in 100 mls @ 100 mls/hr IVPB Q8 [facility]; Protocol Last Admin: 07/06/18 05:27 Dose: 100 mls/hr Ceftriaxone Sodium (Rocephin 1 Gram Ivpb) 1 gm in 100 mls @ 100 mls/hr IVPB DAILY [facility]; Protocol Sodium Chloride (Sodium Chloride 0.9%) 1,000 mls @ 200 mls/hr IV .Q5H [facility] Last Admin: 07/06/18 03:10 Dose: 200 mls/hr Dextrose (Dextrose 5% In Water 1000 Ml) 1,000 mls @ 0 mls/hr IV .Q0M PRN; Protocol PRN Reason: Hypoglycemia Protocol Insulin Human Regular (Humulin R Low) 0 units SC ACHS [facility]; Protocol Last Admin: 07/05/18 22:16 Dose: Not Given Ondansetron HCl (Zofran Inj) 4 mg IVP Q6 PRN PRN Reason: Nausea/Vomiting Last Admin: 07/06/18 00:45 Dose: 4 mg Pantoprazole Sodium (Protonix Inj) 40 mg IVP DAILY [facility] - Labs Labs: 07/06/18 06:00 07/06/18 06:00 PT 12.1 SECONDS (9.4-12.5) 07/05/18 15:50 INR 1.06 07/05/18 15:50 APTT 32.5 Seconds (25.1-36.5) 07/05/18 15:50 - Constitutional Appears: Non-toxic, No Acute Distress - Head Exam Head Exam: ATRAUMATIC, NORMAL INSPECTION - Eye Exam Eye Exam: EOMI, Normal appearance, PERRL - ENT Exam ENT Exam: Mucous Membranes Moist, Normal Exam - Neck Exam Neck Exam: Normal Inspection - Respiratory Exam Respiratory Exam: Clear to Ausculation Bilateral, NORMAL BREATHING PATTERN. absent: Respiratory Distress - Cardiovascular Exam Cardiovascular Exam: REGULAR RHYTHM, +S1, +S2 - GI/Abdominal Exam GI & Abdominal Exam: Soft, Tenderness (RUQ), Normal Bowel Sounds. absent: Rebound - Rectal Exam Rectal Exam: Deferred - Extremities Exam Extremities Exam: Full ROM, Normal Capillary Refill, Normal Inspection. absent: Pedal Edema, Tenderness - Back Exam Back Exam: NORMAL INSPECTION. absent: tenderness - Neurological Exam Neurological Exam: Alert, Awake, CN II-XII Intact, Oriented x3 Neuro motor strength exam: Left Upper Extremity: 5, Right Upper Extremity: 5, Left Lower Extremity: 5, Right Lower Extremity: 5 - Psychiatric Exam Psychiatric exam: Normal Affect, Normal Mood - Skin Skin Exam: Dry, Intact, Normal Color, Warm Assessment and Plan - Assessment and Plan (Free Text) Assessment: Patient is a 28 yo female who presented with RUQ abdominal pain. Labs revealed elevated lipase and amylase. Abdominal u/s showed cholelithiasis with distended GB. MRCP does not show any stones in ducts. Plan: RUQ Abdominal pain- 2/2 gallstone pancreatitis - Abd u/s: cholelithiasis with distended GB - MRCP: gallstones and mildly distended GB with mild pericholecystic fluid, normal caliber CBD without stone - No leukocytosis, afebrile - Lipase improved 49,765->185->7238 - AST 1246->351, ALT 1286 - Accuchecks Q4H, ISS low - D5/NS @ 200- pt NPO and episode of hypoglycemia - NPO - Rocephin 1 g IV daily (started 07/05) - Flagyl 500 mg IV Q8H (started 07/05) - Zofran 4 mg IV Q6H PRN - Dilaudid 1 mg Q4H PRN - Surgery consulted (Vicente) - GI consulted (Eri) Discussed with patient the risks of pain medications and antibiotics with . Patient understands that she is advised to not breastfeed until no longer taking these medications. She is able to pump but then discard the milk. consult placed. IVF: NS @ 200 Diet: NPO GI ppx: Protonix 40 mg IV daily VTE ppx: Lovenox 40 mg SC daily Code status: full code Case discussed with attending, Dr. Campos. <Amie Campos - Last Filed: 07/06/18 18:19> Objective - Vital Signs/Intake and Output Vital Signs (last 24 hours): Temp Pulse Resp BP Pulse Ox 98.1 F 71 18 99/66 L 95 07/06/18 16:23 07/06/18 16:23 07/06/18 16:23 07/06/18 16:23 07/06/18 16:23 Intake and Output: 07/06/18 07/06/18 06:59 18:59 Intake Total 1500 Balance 1500 - Medications Medications: Current Medications Dextrose (Dextrose 50% Inj) 0 ml IV STAT PRN; Protocol PRN Reason: Hypoglycemia Protocol Enoxaparin Sodium (Lovenox) 40 mg SC DAILY [facility]; Protocol Last Admin: 07/06/18 11:03 Dose: 40 mg Hydromorphone HCl (Dilaudid) 1 mg IVP Q4H PRN PRN Reason: Pain, severe (8-10) Last Admin: 07/06/18 00:41 Dose: 1 mg Metronidazole (Flagyl) 500 mg in 100 mls @ 100 mls/hr IVPB Q8 [facility]; Protocol Last Admin: 07/06/18 14:00 Dose: 100 mls/hr Ceftriaxone Sodium (Rocephin 1 Gram Ivpb) 1 gm in 100 mls @ 100 mls/hr IVPB DAILY [facility]; Protocol Last Admin: 07/06/18 11:04 Dose: 100 mls/hr Dextrose (Dextrose 5% In Water 1000 Ml) 1,000 mls @ 0 mls/hr IV .Q0M PRN; Protocol PRN Reason: Hypoglycemia Protocol Dextrose/Sodium Chloride (Dextrose 5%/0.9% Ns 1000 Ml) 1,000 mls @ 200 mls/hr IV .Q5H [facility] Insulin Human Regular (Humulin R Low) 0 units SC ACHS [facility]; Protocol Last Admin: 07/06/18 18:09 Dose: Not Given Ondansetron HCl (Zofran Inj) 4 mg IVP Q6 PRN PRN Reason: Nausea/Vomiting Last Admin: 07/06/18 00:45 Dose: 4 mg Pantoprazole Sodium (Protonix Inj) 40 mg IVP DAILY [facility] Last Admin: 07/06/18 11:03 Dose: 40 mg - Labs Labs: 07/06/18 06:00 07/06/18 06:00 PT 12.1 SECONDS (9.4-12.5) 07/05/18 15:50 INR 1.06 07/05/18 15:50 APTT 32.5 Seconds (25.1-36.5) 07/05/18 15:50 Attending/Attestation - Attestation I have personally seen and examined this patient.: Yes I have fully participated in the care of the patient.: Yes I have reviewed all pertinent clinical information, including history, physical exam and plan: Yes Notes (Text): 07/06/18 18:18 attending note; Patient seen and examined with the resident. patient is alert and awake. Abdominal pain is improving with pain medication. denies any nausea, vomiting. Denies any fevers, chills. Patient is a 28 yo female with PMH of appendectomy 3 weeks ago who presented to the ED with RUQ pain. Pain began yesterday. She also had 2 episodes of nausea and vomiting, non-bloody. abdominal ultrasound showed gallbladder stones With distended gallbladder. LFTs is improving slowly. started on IV Rocephin and Flagyl. Acute pancreatitis secondary to gallstones. Nothing by mouth. IV fluids. Surgery evaluation appreciated. Rule out CBD stone since elevated LFTs. MRCP ordered. GI evaluation appreciated. Pain management with IV Dilaudid. monitor closely. The diagnosis, treatment plan discussed with patient in detail.
[2018-07-06] MEDS: Enoxaparin 40 mg Syringe SC SCH (11:03)
[2018-07-06] MEDS: cefTRIAXone 1 gm 1 GM/100 ML BAG IVPB SCH (11:04)
--- NOTE | 2018-07-06 11:04 | RAD ---
Date of service: 07/05/2018 HISTORY: chest pain COMPARISON: No prior. FINDINGS: LUNGS: No active pulmonary disease. PLEURA: No significant pleural effusion identified, no pneumothorax apparent. CARDIOVASCULAR: Normal. OSSEOUS STRUCTURES: No significant abnormalities. VISUALIZED UPPER ABDOMEN: Normal. OTHER FINDINGS: None. IMPRESSION: No active disease.
[2018-07-06] MEDS ORDERED: Dextrose 5%/0.9% NS 1,000 ML IV SCH (11:45)
--- NOTE | 2018-07-06 15:06 | MRI ---
Date of service: 07/06/2018 PROCEDURE: Magnetic Resonance Cholangiopancreatography HISTORY: Gallstones COMPARISON: None available. TECHNIQUE: Multiplanar, multisequence MR images of the abdomen were obtained, including heavily T2 weighted MRCP images of the biliary system. Rotating maximum intensity projection images of the biliary system were generated. FINDINGS: MRCP: The common bile duct is of a normal caliber. No evidence of choledocholithiasis. No intrahepatic biliary ductal dilatation. LIVER: Unremarkable. GALLBLADDER: Multiple small gallstones. The gallbladder is mildly distended. There is a small amount of pericholecystic fluid SPLEEN: Unremarkable. PANCREAS: Unremarkable. ADRENALS: Unremarkable. KIDNEYS: Unremarkable. AORTA: No aneurysm. ASCITES: None. OTHER FINDINGS: None. IMPRESSION: Gallstones and mildly distended gallbladder with mild pericholecystic fluid. Normal caliber common bile duct with no evidence of CBD stone
--- NOTE | 2018-07-06 15:56 | CON ---
DATE: 07/06/2018 HISTORY OF PRESENT ILLNESS: I examined Ms. Qiu this morning. She is a 28-year-old female with past medical history of recent appendectomy and a in January. The appendectomy was performed in early June. The patient indicated severe onset of abdominal pain that had been here prior to admission. It is associated with nausea and vomiting without melena, hematochezia or hematemesis. The patient indicates she was unable to take anything by mouth. The patient did not have any problem with her gallbladder before, an uneventful and there was no gallbladder risks in the family. PHYSICAL EXAMINATION: VITAL SIGNS: I reviewed this patient's vital signs. HEENT: Noncontributory. LUNGS: Clear to auscultation except for some wheezes in the left lower quadrant. HEART: Regular rhythm. ABDOMEN: Soft; tenderness elicited in the right upper quadrant, epigastric; mild in the left upper quadrant. There is no tenderness in the lower quadrants bilaterally. LABORATORY DATA: Significant for white count about 10,000 with H and H 14 and 41. Chemistry indicative of noncontributory electrolytes. Bilirubin last one as of yesterday, 2.4. The AST and ALT ratio of 1246/1286, alkaline phosphatase 201, LDH 3679. Amylase 3432 and lipase 49,765. Ultrasound indicates no intrahepatic duct dilatation with gallbladder distention with cholelithiasis and there is no mural thickening of her cholecystic fluid collection. Common bile duct is within normal limits. OVERALL ASSESSMENT: This is a 28-year-old female admitted with evidence of pancreatitis status post recent appendectomy, findings of significant gallstones in her gallbladder. Reviewed this case with Dr. Campos yesterday. PLAN: Today is MRCP and we will continue her on same antibiotics she is on at the current time point which includes ceftriaxone and metronidazole. Follow up with Surgery recommended. Pradeep Hwang DO, PhD [facility]
[2018-07-07] MEDS: metroNIDAZOLE IV 500 mg/100 ml 500 MG/100 ML BAG IVPB SCH ×3 (05:17→21:21)
[2018-07-07 06:53] LABS: ALB/GLOB RATIO 1.2 (1.1-1.8); ALT/SGPT 468 U/L (7-56); AST/SGOT 115 U/L (14-36); BLOOD UREA NITROGEN 12 mg/dL (7-21); CALCIUM 9.6 mg/dL (8.4-10.5); GFR NON-AFRICAN AMERICAN > 60
[2018-07-07 07:24] LABS: BASO # 0.03 K/mm3 (0.0-2.0); BASO % 0.5 % (0.0-3.0); EOS # 0.2 (0.0-0.7); EOS % 3.2 % (1.5-5.0); GRAN # 3.48 (1.4-6.5); GRAN % 54.9 % (50.0-68.0); HEMOGLOBIN 10.3 g/dL (12.0-16.0); LYMPH # 2.1 (1.2-3.4); LYMPH % 33.8 % (22.0-35.0); MEAN CELL VOLUME 80.8 fl (80.0-105.0); MEAN CORPUSCULAR HGB CONC 33.4 g/dl (31.0-37.0); MEAN PLATELET VOLUME 9.9 fl (7.0-11.0); MONO # 0.5 (0.1-0.6); MONO % 7.6 % (1.0-6.0); RBC 3.81 10^6/uL (3.5-6.1); RED CELL DISTRIBUTION WIDTH 13.9 % (11.5-14.5); WHITE BLOOD COUNT 6.3 10^3/ul (4.5-11.0)
[2018-07-07] MEDS: Insulin Reg-LOW-Coverage SC SCH ×4 (08:37→22:00)
[2018-07-07] MEDS: cefTRIAXone 1 gm 1 GM/100 ML BAG IVPB SCH (09:10)
[2018-07-07] MEDS: Enoxaparin 40 mg Syringe SC SCH (09:10)
[2018-07-07] MEDS: Dextrose 5%/0.9% NS 1,000 ML IV SCH ×2 (09:12→18:04)
[2018-07-07] MEDS ORDERED: HYDROmorphone 1 mg/ml ISec IVP PRN (09:48)
--- NOTE | 2018-07-07 10:34 | CP.PCM.PN ---
<ShanelleLissethZoilaKareem - Last Filed: 07/07/18 10:31> Subjective - Date & Time of Evaluation Date of Evaluation: 07/07/18 Time of Evaluation: 07:00 - Subjective Subjective: Surgery: Dr. Toy Zhang Patient reports significant improvement in her abdominal pain. She denies n/v/f/c. She reports flatus. She reports feeling hungry and requesting food. She has been OOB, ambulating to bathroom. Per nursing no acute events overnight. Objective - Vital Signs/Intake and Output Vital Signs (last 24 hours): Temp Pulse Resp BP Pulse Ox 98 F 65 20 115/77 98 07/07/18 08:39 07/07/18 08:39 07/07/18 08:39 07/07/18 08:39 07/07/18 08:39 Intake and Output: 07/07/18 07/07/18 06:59 18:59 Intake Total 1200 Output Total 1150 Balance 50 - Medications Medications: Current Medications Dextrose (Dextrose 50% Inj) 0 ml IV STAT PRN; Protocol PRN Reason: Hypoglycemia Protocol Enoxaparin Sodium (Lovenox) 40 mg SC DAILY [facility]; Protocol Last Admin: 07/07/18 09:10 Dose: 40 mg Hydromorphone HCl (Dilaudid) 0.5 mg IVP Q4H PRN PRN Reason: Pain, severe (8-10) Metronidazole (Flagyl) 500 mg in 100 mls @ 100 mls/hr IVPB Q8 [facility]; Protocol Last Admin: 07/07/18 05:17 Dose: 100 mls/hr Ceftriaxone Sodium (Rocephin 1 Gram Ivpb) 1 gm in 100 mls @ 100 mls/hr IVPB DAILY [facility]; Protocol Last Admin: 07/07/18 09:10 Dose: 100 mls/hr Dextrose (Dextrose 5% In Water 1000 Ml) 1,000 mls @ 0 mls/hr IV .Q0M PRN; Protocol PRN Reason: Hypoglycemia Protocol Dextrose/Sodium Chloride (Dextrose 5%/0.9% Ns 1000 Ml) 1,000 mls @ 150 mls/hr IV .Q6H40M [facility] Last Admin: 07/07/18 09:12 Dose: 150 mls/hr Potassium Chloride (Potassium Chloride 10 Meq/100 Ml) 10 meq in 100 mls @ 50 mls/hr IVPB Q2H [facility] Stop: 07/07/18 12:29 Insulin Human Regular (Humulin R Low) 0 units SC ACHS [facility]; Protocol Last Admin: 07/07/18 08:37 Dose: Not Given Ondansetron HCl (Zofran Inj) 4 mg IVP Q6 PRN PRN Reason: Nausea/Vomiting Last Admin: 07/06/18 00:45 Dose: 4 mg Pantoprazole Sodium (Protonix Inj) 40 mg IVP DAILY [facility] Last Admin: 07/07/18 09:10 Dose: 40 mg - Labs Labs: 07/07/18 05:00 07/07/18 05:00 PT 12.1 SECONDS (9.4-12.5) 07/05/18 15:50 INR 1.06 07/05/18 15:50 APTT 32.5 Seconds (25.1-36.5) 07/05/18 15:50 - Constitutional Appears: Non-toxic, No Acute Distress - Head Exam Head Exam: ATRAUMATIC, NORMOCEPHALIC - Eye Exam Eye Exam: EOMI, Normal appearance - ENT Exam ENT Exam: Mucous Membranes Moist - Respiratory Exam Respiratory Exam: NORMAL BREATHING PATTERN. absent: Respiratory Distress - Cardiovascular Exam Cardiovascular Exam: REGULAR RHYTHM. absent: Tachycardia - GI/Abdominal Exam GI & Abdominal Exam: Soft. absent: Distended, Guarding, Rigid, Tenderness, Rebound - Neurological Exam Neurological Exam: Alert, Awake, Oriented x3 - Psychiatric Exam Psychiatric exam: Normal Affect, Normal Mood Assessment and Plan - Assessment and Plan (Free Text) Assessment: 28 y/o female w/ gallstone pancreatitis, improving Plan: -will plan for OR once lipase normalizes, cont to trend -NPO -IVF, can decrease rate -zofran for nausea -monitor output -serial abdominal exams -d/w Dr. Vicente Brizuela PGY4 <Naman Zhang - Last Filed: 07/07/18 18:22> Objective - Vital Signs/Intake and Output Vital Signs (last 24 hours): Temp Pulse Resp BP Pulse Ox 98.7 F 63 20 111/74 99 07/07/18 17:04 07/07/18 17:04 07/07/18 17:04 07/07/18 17:04 07/07/18 17:04 Intake and Output: 07/07/18 07/07/18 06:59 18:59 Intake Total 1200 Output Total 1150 Balance 50 - Medications Medications: Current Medications Dextrose (Dextrose 50% Inj) 0 ml IV STAT PRN; Protocol PRN Reason: Hypoglycemia Protocol Enoxaparin Sodium (Lovenox) 40 mg SC DAILY [facility]; Protocol Last Admin: 07/07/18 09:10 Dose: 40 mg Hydromorphone HCl (Dilaudid) 0.5 mg IVP Q4H PRN PRN Reason: Pain, severe (8-10) Metronidazole (Flagyl) 500 mg in 100 mls @ 100 mls/hr IVPB Q8 [facility]; Protocol Last Admin: 07/07/18 13:46 Dose: 100 mls/hr Ceftriaxone Sodium (Rocephin 1 Gram Ivpb) 1 gm in 100 mls @ 100 mls/hr IVPB DAILY [facility]; Protocol Last Admin: 07/07/18 09:10 Dose: 100 mls/hr Dextrose (Dextrose 5% In Water 1000 Ml) 1,000 mls @ 0 mls/hr IV .Q0M PRN; Protocol PRN Reason: Hypoglycemia Protocol Dextrose/Sodium Chloride (Dextrose 5%/0.9% Ns 1000 Ml) 1,000 mls @ 150 mls/hr IV .Q6H40M [facility] Last Admin: 07/07/18 18:04 Dose: 150 mls/hr Insulin Human Regular (Humulin R Low) 0 units SC ACHS [facility]; Protocol Last Admin: 07/07/18 08:37 Dose: Not Given Ondansetron HCl (Zofran Inj) 4 mg IVP Q6 PRN PRN Reason: Nausea/Vomiting Last Admin: 07/06/18 00:45 Dose: 4 mg Pantoprazole Sodium (Protonix Inj) 40 mg IVP DAILY [facility] Last Admin: 07/07/18 09:10 Dose: 40 mg - Labs Labs: 07/07/18 05:00 07/07/18 05:00 PT 12.1 SECONDS (9.4-12.5) 07/05/18 15:50 INR 1.06 07/05/18 15:50 APTT 32.5 Seconds (25.1-36.5) 07/05/18 15:50 Assessment and Plan - Assessment and Plan (Free Text) Plan: Seen and examined with resident staff. Agree with above. 28 F with severe transiet gallstone pancreatitis now with downtrending enzymes and clinical improvement. Still has tenderness in upper abdomen. Will plan for lap oralia, possible intra-operative cholangiogram tentatively Sunday, if LFT's continue to normalize. Keep NPO. IVF. Abx. Risks and benefits of laparoscopic cholecystectomy discussed with patient, including but not limited to, bleeding, wound infection, bile duct injury, bile leak, bowel injury, and need for open surgery. All questions answered.
--- NOTE | 2018-07-07 11:26 | CP.PCM.PN ---
<Buffy Ferraro - Last Filed: 07/07/18 12:28> Subjective - Date & Time of Evaluation Date of Evaluation: 07/07/18 Time of Evaluation: 09:00 - Subjective Subjective: PGY-1 Buffy Ferraro D.O. Medicine progress note for Dr. Campos's service: Patient was seen and examined this morning. Patient's pain is much improved. Her SOB is resolved. She denies nausea and vomiting. She denies chest pain, fever and chills, urinary symptoms, diarrhea, or constipation. Objective - Vital Signs/Intake and Output Vital Signs (last 24 hours): Temp Pulse Resp BP Pulse Ox 98 F 65 20 115/77 98 07/07/18 08:39 07/07/18 08:39 07/07/18 08:39 07/07/18 08:39 07/07/18 08:39 Intake and Output: 07/07/18 07/07/18 06:59 18:59 Intake Total 1200 Output Total 1150 Balance 50 - Medications Medications: Current Medications Dextrose (Dextrose 50% Inj) 0 ml IV STAT PRN; Protocol PRN Reason: Hypoglycemia Protocol Enoxaparin Sodium (Lovenox) 40 mg SC DAILY [facility]; Protocol Last Admin: 07/07/18 09:10 Dose: 40 mg Hydromorphone HCl (Dilaudid) 0.5 mg IVP Q4H PRN PRN Reason: Pain, severe (8-10) Metronidazole (Flagyl) 500 mg in 100 mls @ 100 mls/hr IVPB Q8 [facility]; Protocol Last Admin: 07/07/18 05:17 Dose: 100 mls/hr Ceftriaxone Sodium (Rocephin 1 Gram Ivpb) 1 gm in 100 mls @ 100 mls/hr IVPB DAILY [facility]; Protocol Last Admin: 07/07/18 09:10 Dose: 100 mls/hr Dextrose (Dextrose 5% In Water 1000 Ml) 1,000 mls @ 0 mls/hr IV .Q0M PRN; Protocol PRN Reason: Hypoglycemia Protocol Dextrose/Sodium Chloride (Dextrose 5%/0.9% Ns 1000 Ml) 1,000 mls @ 150 mls/hr IV .Q6H40M [facility] Last Admin: 07/07/18 09:12 Dose: 150 mls/hr Potassium Chloride (Potassium Chloride 10 Meq/100 Ml) 10 meq in 100 mls @ 50 mls/hr IVPB Q2H [facility] Stop: 07/07/18 12:29 Insulin Human Regular (Humulin R Low) 0 units SC ACHS [facility]; Protocol Last Admin: 07/07/18 08:37 Dose: Not Given Ondansetron HCl (Zofran Inj) 4 mg IVP Q6 PRN PRN Reason: Nausea/Vomiting Last Admin: 07/06/18 00:45 Dose: 4 mg Pantoprazole Sodium (Protonix Inj) 40 mg IVP DAILY [facility] Last Admin: 07/07/18 09:10 Dose: 40 mg - Labs Labs: 07/07/18 05:00 07/07/18 05:00 PT 12.1 SECONDS (9.4-12.5) 07/05/18 15:50 INR 1.06 07/05/18 15:50 APTT 32.5 Seconds (25.1-36.5) 07/05/18 15:50 - Constitutional Appears: Non-toxic, No Acute Distress - Head Exam Head Exam: ATRAUMATIC, NORMAL INSPECTION, NORMOCEPHALIC - Eye Exam Eye Exam: Normal appearance, PERRL - ENT Exam ENT Exam: Mucous Membranes Moist, Normal Exam - Neck Exam Neck Exam: Normal Inspection - Respiratory Exam Respiratory Exam: Clear to Ausculation Bilateral, NORMAL BREATHING PATTERN - Cardiovascular Exam Cardiovascular Exam: REGULAR RHYTHM, +S1, +S2 - GI/Abdominal Exam GI & Abdominal Exam: Soft, Tenderness (mild), Normal Bowel Sounds - Rectal Exam Rectal Exam: Deferred - Extremities Exam Extremities Exam: Full ROM, Normal Inspection. absent: Pedal Edema, Tenderness - Back Exam Back Exam: NORMAL INSPECTION - Neurological Exam Neurological Exam: Alert, Awake, CN II-XII Intact, Oriented x3 Neuro motor strength exam: Left Upper Extremity: 5, Right Upper Extremity: 5, Left Lower Extremity: 5, Right Lower Extremity: 5 - Psychiatric Exam Psychiatric exam: Normal Affect, Normal Mood - Skin Skin Exam: Dry, Intact, Normal Color, Warm Assessment and Plan - Assessment and Plan (Free Text) Assessment: Patient is a 28 yo female who presented with RUQ abdominal pain. Labs revealed elevated lipase and amylase. Abdominal u/s showed cholelithiasis with distended GB. MRCP does not show any stones in ducts. Lap choly scheduled for tomorrow. Plan: Gallstone pancreatitis - Abd u/s: cholelithiasis with distended GB - MRCP: gallstones and mildly distended GB with mild pericholecystic fluid, normal caliber CBD without stone - No leukocytosis, afebrile - Lipase improved 49,765->170 - Transaminitis improving - Accuchecks Q4H, ISS low - D5/NS @ 150- pt NPO and episode of hypoglycemia - NPO - Rocephin 1 g IV daily (started 07/05) - Flagyl 500 mg IV Q8H (started 07/05) - Zofran 4 mg IV Q6H PRN - Dilaudid 0.5 mg Q4H PRN - Surgery consulted (Vicente)- lap cholecystectomy tomorrow - GI consulted (Eri) Discussed with patient the risks of pain medications and antibiotics with . Patient understands that she is advised to not breastfeed until no longer taking these medications. She is able to pump but then discard the milk. consult placed. IVF: D5/NS @ 150 Diet: NPO GI ppx: Protonix 40 mg IV daily VTE ppx: Lovenox 40 mg SC daily- hold Code status: full code Case discussed with attending, Dr. Campos. <Amie Campos - Last Filed: 07/07/18 15:24> Objective - Vital Signs/Intake and Output Vital Signs (last 24 hours): Temp Pulse Resp BP Pulse Ox 98 F 65 20 115/77 98 07/07/18 08:39 07/07/18 08:39 07/07/18 08:39 07/07/18 08:39 07/07/18 08:39 Intake and Output: 07/07/18 07/07/18 06:59 18:59 Intake Total 1200 Output Total 1150 Balance 50 - Medications Medications: Current Medications Dextrose (Dextrose 50% Inj) 0 ml IV STAT PRN; Protocol PRN Reason: Hypoglycemia Protocol Enoxaparin Sodium (Lovenox) 40 mg SC DAILY [facility]; Protocol Last Admin: 07/07/18 09:10 Dose: 40 mg Hydromorphone HCl (Dilaudid) 0.5 mg IVP Q4H PRN PRN Reason: Pain, severe (8-10) Metronidazole (Flagyl) 500 mg in 100 mls @ 100 mls/hr IVPB Q8 [facility]; Protocol Last Admin: 07/07/18 13:46 Dose: 100 mls/hr Ceftriaxone Sodium (Rocephin 1 Gram Ivpb) 1 gm in 100 mls @ 100 mls/hr IVPB DAILY [facility]; Protocol Last Admin: 07/07/18 09:10 Dose: 100 mls/hr Dextrose (Dextrose 5% In Water 1000 Ml) 1,000 mls @ 0 mls/hr IV .Q0M PRN; Protocol PRN Reason: Hypoglycemia Protocol Dextrose/Sodium Chloride (Dextrose 5%/0.9% Ns 1000 Ml) 1,000 mls @ 150 mls/hr IV .Q6H40M [facility] Last Admin: 07/07/18 09:12 Dose: 150 mls/hr Insulin Human Regular (Humulin R Low) 0 units SC ACHS [facility]; Protocol Last Admin: 07/07/18 08:37 Dose: Not Given Ondansetron HCl (Zofran Inj) 4 mg IVP Q6 PRN PRN Reason: Nausea/Vomiting Last Admin: 07/06/18 00:45 Dose: 4 mg Pantoprazole Sodium (Protonix Inj) 40 mg IVP DAILY [facility] Last Admin: 07/07/18 09:10 Dose: 40 mg - Labs Labs: 07/07/18 05:00 07/07/18 05:00 PT 12.1 SECONDS (9.4-12.5) 07/05/18 15:50 INR 1.06 07/05/18 15:50 APTT 32.5 Seconds (25.1-36.5) 07/05/18 15:50 Attending/Attestation - Attestation I have personally seen and examined this patient.: Yes I have fully participated in the care of the patient.: Yes I have reviewed all pertinent clinical information, including history, physical exam and plan: Yes Notes (Text): 07/07/18 15:22 attending note; Patient seen and examined with the resident. patient is alert and awake. Denies any abdominal pain. Not requesting any IV Dilaudid. denies any nausea, vomiting. Denies any fevers, chills. Patient is a 28 yo female with PMH of appendectomy 3 weeks ago who presented to the ED with RUQ pain. Acute gallstone pancreatitis. abdominal ultrasound showed gallbladder stones With distended gallbladder. Continue IV fluids. Lipase improved significantly. Abdominal pain resolved. Started on clear liquid diet. on IV Rocephin and Flagyl. continue IV fluids. Surgery evaluation appreciated. Plan for laparoscopic cholecystectomy tomorrow. Elevated LFT ; improved significantly . MRCP is negative for CBD stone. GI evaluation appreciated. The diagnosis, treatment plan discussed with patient in detail.
[2018-07-08] MEDS: Dextrose 5%/0.9% NS 1,000 ML IV SCH ×2 (02:03→11:22)
--- NOTE | 2018-07-08 04:27 | CP.PCM.PN ---
Subjective - Date & Time of Evaluation Date of Evaluation: 07/08/18 Time of Evaluation: 04:27 - Subjective Subjective: # 22 angiocath was inserted in right forearm. Objective - Vital Signs/Intake and Output Vital Signs (last 24 hours): Temp Pulse Resp BP Pulse Ox 98.7 F 63 20 111/74 99 07/07/18 17:04 07/07/18 17:04 07/07/18 17:04 07/07/18 17:04 07/07/18 17:04 Intake and Output: 07/07/18 07/08/18 18:59 06:59 Intake Total 1900 Output Total 600 Balance 1300 - Medications Medications: Current Medications Dextrose (Dextrose 50% Inj) 0 ml IV STAT PRN; Protocol PRN Reason: Hypoglycemia Protocol Enoxaparin Sodium (Lovenox) 40 mg SC DAILY [facility]; Protocol Last Admin: 07/07/18 09:10 Dose: 40 mg Hydromorphone HCl (Dilaudid) 0.5 mg IVP Q4H PRN PRN Reason: Pain, severe (8-10) Metronidazole (Flagyl) 500 mg in 100 mls @ 100 mls/hr IVPB Q8 [facility]; Protocol Last Admin: 07/07/18 21:21 Dose: 100 mls/hr Ceftriaxone Sodium (Rocephin 1 Gram Ivpb) 1 gm in 100 mls @ 100 mls/hr IVPB DAILY [facility]; Protocol Last Admin: 07/07/18 09:10 Dose: 100 mls/hr Dextrose (Dextrose 5% In Water 1000 Ml) 1,000 mls @ 0 mls/hr IV .Q0M PRN; Protocol PRN Reason: Hypoglycemia Protocol Dextrose/Sodium Chloride (Dextrose 5%/0.9% Ns 1000 Ml) 1,000 mls @ 150 mls/hr IV .Q6H40M [facility] Last Admin: 07/08/18 02:03 Dose: 150 mls/hr Insulin Human Regular (Humulin R Low) 0 units SC ACHS [facility]; Protocol Last Admin: 07/07/18 22:00 Dose: Not Given Ondansetron HCl (Zofran Inj) 4 mg IVP Q6 PRN PRN Reason: Nausea/Vomiting Last Admin: 07/06/18 00:45 Dose: 4 mg Pantoprazole Sodium (Protonix Inj) 40 mg IVP DAILY [facility] Last Admin: 07/07/18 09:10 Dose: 40 mg - Labs Labs: 07/07/18 05:00 07/07/18 05:00 PT 12.1 SECONDS (9.4-12.5) 07/05/18 15:50 INR 1.06 07/05/18 15:50 APTT 32.5 Seconds (25.1-36.5) 07/05/18 15:50
[2018-07-08] MEDS: metroNIDAZOLE IV 500 mg/100 ml 500 MG/100 ML BAG IVPB SCH ×3 (05:19→21:32)
[2018-07-08 07:08] LABS: BASO # 0.02 K/mm3 (0.0-2.0); BASO % 0.4 % (0.0-3.0); EOS # 0.2 (0.0-0.7); EOS % 3.7 % (1.5-5.0); GRAN # 2.36 (1.4-6.5); GRAN % 43.1 % (50.0-68.0); HEMOGLOBIN 10.8 g/dL (12.0-16.0); LYMPH # 2.5 (1.2-3.4); LYMPH % 45.8 % (22.0-35.0); MEAN CELL VOLUME 80.3 fl (80.0-105.0); MEAN CORPUSCULAR HEMOGLOBIN 26.9 pg (25.0-35.0); MEAN CORPUSCULAR HGB CONC 33.5 g/dl (31.0-37.0); MEAN PLATELET VOLUME 9.3 fl (7.0-11.0); MONO # 0.4 (0.1-0.6); RBC 4.01 10^6/uL (3.5-6.1); RED CELL DISTRIBUTION WIDTH 13.7 % (11.5-14.5); WHITE BLOOD COUNT 5.5 10^3/ul (4.5-11.0)
[2018-07-08 07:13] LABS: INR 1.18; PARTIAL THROMBOPLASTIN TIME 35.3 Seconds (25.1-36.5); PROTHROMBIN TIME 13.6 SECONDS (9.4-12.5)
[2018-07-08 07:43] LABS: BLOOD UREA NITROGEN 9 mg/dL (7-21); GFR NON-AFRICAN AMERICAN > 60
[2018-07-08 07:44] LABS: ALB/GLOB RATIO 1.2 (1.1-1.8); ALBUMIN 3.9 g/dL (3.0-4.8); ALT/SGPT 316 U/L (7-56); AST/SGOT 50 U/L (14-36); CALCIUM 9.4 mg/dL (8.4-10.5)
--- NOTE | 2018-07-08 08:15 | PN ---
DATE: 07/07/2018 SUBJECTIVE: I saw Ms. Qiu this morning. She is a 28-year-old female with complaints of nausea, vomiting, abdominal pain caused from pancreatitis. At the bedside this morning, the patient has minimal abdominal pain and the abdomen has decompressed. She is afebrile with no nausea, vomiting, or hematemesis. PHYSICAL EXAMINATION: VITAL SIGNS: I reviewed this patient's vital signs. HEENT: Noncontributory. LUNGS: Clear to auscultation. HEART: Regular rhythm. ABDOMEN: Soft. No tenderness elicited. LABORATORY DATA: I reviewed the laboratory data most recently from this morning, which indicates ALT 468, AST 115 substantially down from a ratio of 1246/1286 previously. She also has a decrease in the alkaline phosphatase. Bilirubin is within normal limits. Lipase as of late yesterday was almost 1900. Note that the MRCP performed yesterday as expected, showed gallstones with mildly distended gallbladder and pericholecystic fluid, without evidence of CBD stones. I reviewed the notes of respective consultants. OVERALL ASSESSMENT: A 28-year-old female with gallstone pancreatitis, it was probably precipitated by stone at the ampulla. The patient is currently asymptomatic. She will be followed up by Surgery later on this morning. I reviewed the probability of recurrent admissions for gallstone pancreatitis if cholecystectomy is not performed with the patient at the bedside. The patient is currently on fluids, metronidazole, and ceftriaxone and doing fine. We would consider advancing her diet today if no plans by surgical service. She will be followed up by Surgery later on this morning. Pradeep Hwang DO, PhD [facility]
[2018-07-08] MEDS ORDERED: Potassium Phosphate 3 mmol/ml Inj IV ONE (08:17)
[2018-07-08] MEDS: Insulin Reg-LOW-Coverage SC SCH ×4 (08:27→22:00)
[2018-07-08] MEDS ORDERED: Potassium Phosphate 15 MMOLE in Sodium Chloride 0.9% 250 ML IVPB ONE (08:30)
[2018-07-08] MEDS: cefTRIAXone 1 gm 1 GM/100 ML BAG IVPB SCH (10:00)
--- NOTE | 2018-07-08 10:17 | PN ---
DATE: 07/08/2018 SUBJECTIVE: I saw Ms. Qiu this morning. She is a 28-year-old female with complaints of nausea, vomiting, abdominal pain secondary to gallstone pancreatitis. The patient improved dramatically over the past couple of days with substantial decrease in amylase and lipase as well as transaminases and abdominal pain. I had a long discussion yesterday regarding the utility of cholecystectomy after a very severe episode of gallstone pancreatitis. The patient finally agreed to have a cholecystectomy done after discussion with Surgery yesterday. I reviewed this case with Dr. Campos yesterday. PHYSICAL EXAMINATION: VITAL SIGNS: I reviewed this patient's vital signs. HEENT: Noncontributory. LUNGS: Clear to auscultation. HEART: Regular rhythm. ABDOMEN: Soft. No tenderness elicited. LABORATORY DATA: The patient's labs indicate, as of yesterday, H and H done probably done on a dilutional basis, white count 6.3. Chemistry significant for decrease in AST, ALT, and alk phos indicated in my note yesterday. AST 115, ALT 468. Lipase is down to 170. OVERALL ASSESSMENT: A 28-year-old female admitted with gallstone pancreatitis, has substantial amount of gallstones in her gallbladder. The patient is scheduled for a laparoscopic cholecystectomy sometime later this afternoon. The symptoms of her gallstone pancreatitis have for the most part resolved. Pradeep Hwang DO, PhD [facility]
[2018-07-08] MEDS ORDERED: Propofol 10 mg/ml Inj (20 ML) ONE ×2 (13:29→15:00)
[2018-07-08] MEDS ORDERED: Midazolam 2 MG/2 ML VIAL ONE (13:29)
[2018-07-08] MEDS ORDERED: Rocuronium 10 mg/ml (5 ml) ONE (13:32)
[2018-07-08] MEDS ORDERED: Bupivacaine 0.5% 50 ML IJ ONE (13:40)
[2018-07-08] MEDS ORDERED: Iohexol 240 (50 ml) ONE (13:40)
[2018-07-08] MEDS ORDERED: Bupivacaine 0.25% 50 ML INJ IJ ONE ×2 (13:52→13:56)
[2018-07-08] MEDS ORDERED: Lidocaine 1% w Epi 1:100,000 Inj ONE (13:52)
[2018-07-08] MEDS ORDERED: Neostigmine Methylsulfate 3mg/3ml Syringe IV ONE (14:29)
[2018-07-08] MEDS ORDERED: Bupivacaine 0.25% Inj(30mL) IJ ONE (14:50)
[2018-07-08] MEDS ORDERED: HYDROmorphone 1 mg/ml ISec IVP PRN ×2 (15:05→15:41)
[2018-07-08] MEDS ORDERED: Lactated Ringer's 1,000 ML IV SCH (15:15)
[2018-07-08] MEDS ORDERED: Sodium Chloride 0.9% 1,000 ML IV SCH (15:15)
--- NOTE | 2018-07-08 15:15 | PCM.SURG1 ---
Surgeon's Initial Post Op Note - Surgeon's Notes Surgeon: Dr. Zhang Ventilation Worker: Dr. Nava PGY3 Type of Anesthesia: General Endo Anesthesia Administered By: Dr. Reed Pre-Operative Diagnosis: Gallstone Pancreatitis Operative Findings: See operative dictation Post-Operative Diagnosis: Gallstone Pancreatitis Operation Performed: Laparoscopic Cholecystectomy Specimen/Specimens Removed: Gallbladder Estimated Blood Loss: EBL {In ML}: 20 Blood Products Given: N/A Drains Used: No Drains Post-Op Condition: Good Date of Surgery/Procedure: 07/08/18 Time of Surgery/Procedure: 15:14
--- NOTE | 2018-07-08 15:15 | PCM.OP ---
Operative Report - Operative Report Date of Surgery/Procedure: 07/08/18 Time of Surgery/Procedure: 13:45 Surgeon: Naman Zhang MD Onsite Health Coach: Juan Nava DO (PGY3 resident) Anesthesia/Sedation: General endotracheal; 1% lidocaine with epinephrine + 0.25% Marcaine mix local anesthesia Pre-Operative Diagnosis: Gallstone pancreatitis. Acute Cholecystitis. Overweight. BMI 28 Post-Operative Diagnosis: Gallstone pancreatitis. Acute Cholecystitis. Overweight. BMI 28 Indication for Surgery: This is a 28-year-old female admitted admitted over the weekend with acute attack of cholecystitis and gallstone pancreatitis with significantly elevated lipase. Her symptoms have improved and her enzymes normalized. MRCP was performed and negative for choledocholithiasis or cbd dilation. Details of HPI in clinical chart. Taken to the operating room for laparoscopic cholecystectomy, possible open, possible intra-operative cholangiogram. Patient understands the risks and benefits of the procedure as documented in the clinic chart but specifically risk of cystic duct leak, and common bile duct injury, need for open surgery and has consented to the procedure. Operative Findings: No significant inflammation in right upper quadrant. Large inflamed, dilated, fluid filled gallbladder. Midline omental adhesions to recent umbilical hernia repair. Clips in place on cystic duct and cystic artery at end of case without evidence of bleeding or bile leak Procedure/Operation Description: PROCEDURES PERFORMED: 1) Laparoscopic Cholecystectomy. . DESCRIPTION OF PROCEDURE: The patient was given a preoperative dose of Ancef 2g 20 minutes before the incision. SCD boots were placed for DVT prophylaxis. The patient had an orogastric tube placed in order to empty the stomach after the induction of general anesthesia. Upper body warmer placed to maintain normothermia. Secure straps placed above and below the knees. Arms placed on arm boards out at 80 degress. All bony prominences were padded. No parker inserted as patient had voided immediately prior to being brought back to OR. No hair removal necessary. The abdomen was prepped and draped in sterile fashion. A timeout was performed prior to incision. All skin incisions were made using an 11 blade scalpel after being pre-anesthetized with local anesthesia. Because of the patients history of midline surgery, including , and recent laparoscopic appendictomy with umbilical hernia repair 4 weeks ago, Abdominal entry was gained using an 5mm optically viewing trocar with A 5mm 0-degree laparoscope placed in phenix city[place] point in the left upper quadrant. All layers of the abdominal wall were seen and peritoneal entry directly visua lized. The abdomen was then insufflated with C02 pneumoperitoneum to 15mmhg. 5mm 0-degree laparoscope was then inserted and the abdomen was generally inspected. There were no signs of injury from initial entry and there was not found to be any additional signs of pathology. In the right upper quadrant, two 5-mm ports were placed under direct vision and in the subxiphoid midline, an 11- mm radially dilating port was placed in the similar fashion. An additional 12mm trocar was placed in the supraumbilical midline cephalad to prior hernia repair. Laparoscope was switched to a 10mm 30 degree camera and inserted through the midline 12mm port. In the right upper abdomen and a large dilated gallbladder fundus was identified beneath the liver edge. The fundus of the gallbladder was then retracted to the right upper quadrant and the neck of the gallbladder was visualized. Omental adhesions to the gallbladder that were taken down with a cominbation of sharp dissection and hook cautery. The peritoneal attachments from the lateral portion of the gallbladder/cystic duct junction were gently dissected and divided to open up the [place]. The [place] was then dissected up onto the liver bed posterior to the gallbladder in order to ensure that this was the cystic duct and not tenting of the common bile duct. The peritoneal attachments on the medial portion of the gallbladder going up to the side of the liver were taken and distal third of galbbladder dissected off the cystic plate. The critical view was obtained. The cystic artery and duct were sequentially then doubly clipped and ligated and the clips were inspected. . Once this was completed, the gallbladder was dissected free from the liver bed using electrocautery and placed this in an endo catch bag. This was withdrawn through the umbilical port. The abdomen was reinspected. The clips were in good position on the cystic artery and duct stumps and the abdomen was generally irrigated and drained. The ports were then removed from the abdomen and the abdomen was desufflated with air. The umbilical port was closed with interuppted 0- Vicryl suture x2, skin incisions closed with 4-0 Vicryl sutures, and finally dermabond applied to skin. The patient tolerated the procedure well and was extubated and stable in recovery after the procedure. . I was present throughout the entirety of the procedure. Sponge, needle and instrument counts were correct. Estimated Blood Loss: 15mL Complications: none Specimen: Gallbladder Discharge & Condition: above
--- NOTE | 2018-07-08 18:30 | CP.PCM.PN ---
<Trevin Zhang - Last Filed: 07/10/18 21:59> Subjective - Date & Time of Evaluation Date of Evaluation: 07/08/18 Time of Evaluation: 18:30 - Subjective Subjective: Trevin Zhang DO PGY1 - Internal Medicine Hydrodynamicist - Hospital Progress Note Patient was not seen or examined by resident this AM Please refer to attending note for subjective portion, and physical exam Objective - Vital Signs/Intake and Output Vital Signs (last 24 hours): Temp Pulse Resp BP Pulse Ox 98.4 F 72 18 133/97 H 98 07/08/18 17:40 07/08/18 17:40 07/08/18 17:40 07/08/18 17:40 07/08/18 17:40 Intake and Output: 07/08/18 07/08/18 06:59 18:59 Intake Total 3600 0 Output Total 1300 Balance 2300 0 - Medications Medications: Current Medications Dextrose (Dextrose 50% Inj) 0 ml IV STAT PRN; Protocol PRN Reason: Hypoglycemia Protocol Enoxaparin Sodium (Lovenox) 40 mg SC DAILY [facility]; Protocol Last Admin: 07/07/18 09:10 Dose: 40 mg Hydromorphone HCl (Dilaudid) 1 mg IVP Q15M PRN PRN Reason: Pain, moderate (4-7) Stop: 07/08/18 23:59 Hydromorphone HCl (Dilaudid) 0.5 mg IVP Q4H PRN PRN Reason: Pain, severe (8-10) Metronidazole (Flagyl) 500 mg in 100 mls @ 100 mls/hr IVPB Q8 [facility]; Protocol Last Admin: 07/08/18 15:00 Dose: Not Given Ceftriaxone Sodium (Rocephin 1 Gram Ivpb) 1 gm in 100 mls @ 100 mls/hr IVPB DAILY [facility]; Protocol Last Admin: 07/08/18 10:00 Dose: Not Given Dextrose (Dextrose 5% In Water 1000 Ml) 1,000 mls @ 0 mls/hr IV .Q0M PRN; Protocol PRN Reason: Hypoglycemia Protocol Dextrose/Sodium Chloride (Dextrose 5%/0.9% Ns 1000 Ml) 1,000 mls @ 150 mls/hr IV .Q6H40M [facility] Last Admin: 07/08/18 11:22 Dose: 150 mls/hr Insulin Human Regular (Humulin R Low) 0 units SC ACHS [facility]; Protocol Last Admin: 07/08/18 16:57 Dose: Not Given Ketorolac Tromethamine (Toradol) 15 mg IVP Q6 [facility] Last Admin: 07/08/18 17:28 Dose: 15 mg Ondansetron HCl (Zofran Inj) 4 mg IVP Q6 PRN PRN Reason: Nausea/Vomiting Last Admin: 07/06/18 00:45 Dose: 4 mg Ondansetron HCl (Zofran Inj) 4 mg IVP ONCE PRN PRN Reason: Nausea/Vomiting Oxycodone/Acetaminophen (Percocet 5/325 Mg Tab) 1 tab PO Q4H PRN PRN Reason: Pain, moderate (4-7) Stop: 07/11/18 15:44 Pantoprazole Sodium (Protonix Inj) 40 mg IVP DAILY [facility] Last Admin: 07/08/18 10:18 Dose: 40 mg - Labs Labs: 07/08/18 06:40 07/08/18 06:40 PT 13.6 SECONDS (9.4-12.5) H 07/08/18 06:40 INR 1.18 07/08/18 06:40 APTT 35.3 Seconds (25.1-36.5) 07/08/18 06:40 Assessment and Plan - Assessment and Plan (Free Text) Assessment: 28F w/ no significant PMH presented to [facility] + Abd pain found to have elevated amylase + lipase; admitted for Gallstone pancreatitis. Patient is to undergo Lapchole with general surgery on 07/08 Plan: Gallstone pancreatitis Abd u/s: Cholelithiasis + distended GB MRCP: distended GB with mild pericholecystic fluid, normal caliber CBD without stone Afebrile/ no leukocytosis C/w rocephin + flagyll at this time Dilaudid 0.5mg q4h prn zofran 4mg 16h prn NPO Lap oralia w/ gen surg today GI Following, appreciate reccs IVF: D5/NS @ 150 Diet: NPO GI ppx: Protonix 40 mg IV daily VTE ppx: Lovenox 40 mg SC daily- hold Code status: full code Case discussed w/ attending physician Dr. Zhang; Please see attending addendum f or complete subjective and physical exam Trevin Zhang DO PGY1 Internal Medicine Hydrodynamicist <ZhangBrunilda R - Last Filed: 07/11/18 09:24> Objective - Vital Signs/Intake and Output Vital Signs (last 24 hours): Temp Pulse Resp BP Pulse Ox 98.5 F 60 18 108/68 99 07/09/18 18:00 07/09/18 18:00 07/09/18 18:00 07/09/18 18:00 07/09/18 18:00 - Labs Labs: 07/09/18 06:30 07/09/18 06:30 PT 13.6 SECONDS (9.4-12.5) H 07/08/18 06:40 INR 1.18 07/08/18 06:40 APTT 35.3 Seconds (25.1-36.5) 07/08/18 06:40 Attending/Attestation - Attestation I have personally seen and examined this patient.: Yes I have fully participated in the care of the patient.: Yes I have reviewed all pertinent clinical information, including history, physical exam and plan: Yes Notes (Text): Patient seen and examined by me with resident at 3:45PM on 07/08/18. Case including HPI, physical exam, and assessment and plan discussed with resident. Agree with above with following additions/corrections. Patient is a 28-year-old female past medical history significant for injected me approximately 3 weeks ago that presented to the emergency room with right upper quadrant abdominal pain. Patient is status post cholecystectomy. Patient drowsy. Complains of some abdominal pain. No flatus yet. Denies any current nausea or vomiting. No h eadaches or dizziness. No dysuria. No fevers or chills. Physical exam: Gen: Drowsy lying in bed in no acute distress HEENT: Normocephalic, atraumatic. Extraocular muscles intact, pupils equal and reactive. No scleral icterus. Oropharynx is pink and moist. Neck is supple. Cardiovascular: Normal rhythm. Normal S1, S2. No rubs or gallops appreciated Pulmonary: Normal respiratory effort. No rhonchi, rales, or wheezing appreciated. Gastrointestinal: Soft. Mild distention. Positive generalized tenderness. Hypoactive bowel sounds bowel sounds all 4 quadrants, no guarding. Incision sites clean, dry, and intact. Musculoskeletal: Moves all extremities. No calf tenderness. No edema appreciated Central nervous system: Patient drowsy. Dermatologic: Skin warm and dry. Assessment and plan: Patient is a 28-year-old female past medical history significant for injected me approximately 3 weeks ago that presented to the emergency room with right upper quadrant abdominal pain. 1. Gallstone pancreatitis. Abdominal ultrasound per radiologist showed cholelithiasis identified within a distended gallbladder, no other acute findings suggest acute cholecystitis. MRCP per radiologist showed gallstones and mildly distended gallbladder with mild pericholecystic fluid, normal caliber common bile duct with no evidence of CBD stone. Lipase improved. Patient with no leukocytosis. Afebrile. Status post cholecystectomy today. Continue with pain management. Continue IV fluids. Monitor for return of bowel function. Continue Zofran as needed. Surgery following, recommendations appreciated. GI following, echo pending appreciated. 2. Transaminitis. Improving. Continue to monitor. 3. Anemia. H&H stable. Continue to monitor. Case was discussed in detail with the patient regarding current diagnosis and treatment plan.
[2018-07-09] MEDS: Oxycodone/Acetaminophen 5/325 mg Tab PO PRN ×2 (03:13→11:55)
[2018-07-09 07:12] LABS: BASO # 0.01 K/mm3 (0.0-2.0); BASO % 0.1 % (0.0-3.0); EOS % 0.4 % (1.5-5.0); GRAN # 4.62 (1.4-6.5); GRAN % 62.4 % (50.0-68.0); HEMOGLOBIN 10.5 g/dL (12.0-16.0); LYMPH # 2.2 (1.2-3.4); LYMPH % 29.7 % (22.0-35.0); MEAN CELL VOLUME 78.9 fl (80.0-105.0); MEAN CORPUSCULAR HEMOGLOBIN 27.1 pg (25.0-35.0); MEAN CORPUSCULAR HGB CONC 34.3 g/dl (31.0-37.0); MEAN PLATELET VOLUME 9.8 fl (7.0-11.0); MONO # 0.6 (0.1-0.6); MONO % 7.4 % (1.0-6.0); RBC 3.88 10^6/uL (3.5-6.1); RED CELL DISTRIBUTION WIDTH 13.6 % (11.5-14.5); WHITE BLOOD COUNT 7.4 10^3/ul (4.5-11.0)
[2018-07-09 07:41] LABS: ALB/GLOB RATIO 1.3 (1.1-1.8); ALBUMIN 3.8 g/dL (3.0-4.8); ALT/SGPT 227 U/L (7-56); AST/SGOT 51 U/L (14-36); BLOOD UREA NITROGEN 10 mg/dL (7-21); GFR NON-AFRICAN AMERICAN > 60
--- NOTE | 2018-07-09 08:02 | PN ---
DATE: 07/09/2018 SUBJECTIVE: I examined Ms. Qiu this morning. She is a 28-year-old female, admitted with signs, symptoms and laboratory data consistent with gallstone pancreatitis. The patient underwent a laparoscopic cholecystectomy yesterday with apparently good results. PHYSICAL EXAMINATION: VITAL SIGNS: I reviewed this patient's vital signs. HEENT: Noncontributory. LUNGS: Clear to auscultation. HEART: Regular rhythm. ABDOMEN: Tender over the incision site. Belly is still mildly distended. Irregular bowel sounds. LABORATORY DATA: Pending for this morning. OVERALL ASSESSMENT: This is a 28-year-old female, admitted with gallstone pancreatitis, now status post laparoscopic cholecystectomy. The patient will be followed up by Surgery later on this morning to determine the disposition of the discharge. Pradeep Hwang DO, PhD MAR[facility]
[2018-07-09] MEDS ORDERED: Potassium Chloride 20 mEq ER Tab PO STA (08:54)
[2018-07-09] MEDS ORDERED: Magnesium Sulfate 2 gm/50 ml 2 GM/50 ML BAG IVPB ONE (08:56)
[2018-07-09] MEDS: Dextrose 5%/0.9% NS 1,000 ML IV SCH (08:59)
[2018-07-09] MEDS: Insulin Reg-LOW-Coverage SC SCH ×2 (09:02→12:19)
[2018-07-09 09:11] VITALS: O2SAT 99
--- NOTE | 2018-07-09 10:39 | CP.PCM.PN ---
<Arias Gresham - Last Filed: 07/09/18 10:34> Subjective - Date & Time of Evaluation Date of Evaluation: 07/09/18 Time of Evaluation: 10:38 - Subjective Subjective: General surgery progress note for Dr. Zhang Patient seen and examined at bedside. No acute events overnight. Patient complains of pain at the surgical site. She is tolerating diet well. Denies fevers, chills, nausea, vomiting, shortness of breath, chest pain, or any other complaints. Objective - Vital Signs/Intake and Output Vital Signs (last 24 hours): Temp Pulse Resp BP Pulse Ox 98.4 F 65 20 111/72 99 07/09/18 09:10 07/09/18 09:10 07/09/18 09:10 07/09/18 09:10 07/09/18 09:10 Intake and Output: 07/09/18 07/09/18 06:59 18:59 Intake Total 1840 Output Total 2000 Balance -160 - Medications Medications: Current Medications Dextrose (Dextrose 50% Inj) 0 ml IV STAT PRN; Protocol PRN Reason: Hypoglycemia Protocol Enoxaparin Sodium (Lovenox) 40 mg SC DAILY [facility]; Protocol Last Admin: 07/07/18 09:10 Dose: 40 mg Hydromorphone HCl (Dilaudid) 0.5 mg IVP Q4H PRN PRN Reason: Pain, severe (8-10) Ceftriaxone Sodium (Rocephin 1 Gram Ivpb) 1 gm in 100 mls @ 100 mls/hr IVPB DAILY [facility]; Protocol Last Admin: 07/08/18 10:00 Dose: Not Given Dextrose (Dextrose 5% In Water 1000 Ml) 1,000 mls @ 0 mls/hr IV .Q0M PRN; Protocol PRN Reason: Hypoglycemia Protocol Dextrose/Sodium Chloride (Dextrose 5%/0.9% Ns 1000 Ml) 1,000 mls @ 150 mls/hr IV .Q6H40M [facility] Last Admin: 07/09/18 08:59 Dose: 150 mls/hr Insulin Human Regular (Humulin R Low) 0 units SC ACHS [facility]; Protocol Last Admin: 07/09/18 09:02 Dose: Not Given Ketorolac Tromethamine (Toradol) 15 mg IVP Q6 [facility] Last Admin: 07/09/18 06:27 Dose: Not Given Ondansetron HCl (Zofran Inj) 4 mg IVP Q6 PRN PRN Reason: Nausea/Vomiting Last Admin: 07/06/18 00:45 Dose: 4 mg Ondansetron HCl (Zofran Inj) 4 mg IVP ONCE PRN PRN Reason: Nausea/Vomiting Oxycodone/Acetaminophen (Percocet 5/325 Mg Tab) 1 tab PO Q4H PRN PRN Reason: Pain, moderate (4-7) Stop: 07/11/18 15:44 Last Admin: 07/09/18 03:13 Dose: 1 tab Pantoprazole Sodium (Protonix Inj) 40 mg IVP DAILY [facility] Last Admin: 07/08/18 10:18 Dose: 40 mg - Labs Labs: 07/09/18 06:30 07/09/18 06:30 PT 13.6 SECONDS (9.4-12.5) H 07/08/18 06:40 INR 1.18 07/08/18 06:40 APTT 35.3 Seconds (25.1-36.5) 07/08/18 06:40 - Constitutional Appears: Well, Non-toxic, No Acute Distress - Head Exam Head Exam: ATRAUMATIC, NORMOCEPHALIC - Eye Exam Eye Exam: Normal appearance - ENT Exam ENT Exam: Mucous Membranes Moist - Respiratory Exam Respiratory Exam: NORMAL BREATHING PATTERN. absent: Respiratory Distress - Cardiovascular Exam Cardiovascular Exam: RRR. absent: Tachycardia - GI/Abdominal Exam GI & Abdominal Exam: Soft, Tenderness (Tender to palpation at surgical site. Dressing C/D/I). absent: Distended, Firm - Neurological Exam Neurological Exam: Alert, Awake, Oriented x3 - Psychiatric Exam Psychiatric exam: Normal Affect, Normal Mood - Skin Skin Exam: Dry, Intact, Normal Color, Warm Assessment and Plan - Assessment and Plan (Free Text) Assessment: Patient is a 28 year old female with gallstone pancreatitis s/p Lap Loretta, POD #1. Plan: - Encourage OOB and ambulation - Incentive spirometer - Advance diet today - Cleared for discharge from surgical standpoint - Follow up with Dr. Zhang in 1 week Case discussed with Dr. Vicente Gresham DO PGY-1 <Naman Zhang - Last Filed: 07/10/18 16:34> Objective - Vital Signs/Intake and Output Vital Signs (last 24 hours): Temp Pulse Resp BP Pulse Ox 98.5 F 60 18 108/68 99 07/09/18 18:00 07/09/18 18:00 07/09/18 18:00 07/09/18 18:00 07/09/18 18:00 - Labs Labs: 07/09/18 06:30 07/09/18 06:30 PT 13.6 SECONDS (9.4-12.5) H 07/08/18 06:40 INR 1.18 07/08/18 06:40 APTT 35.3 Seconds (25.1-36.5) 07/08/18 06:40 Assessment and Plan - Assessment and Plan (Free Text) Plan: Discussed with resident. Feeling much better this am. Tolerating diet. Pain better controlled. Vitals within baseline. Hgb stable at 8.6 (same as yesterday). Drain output more serous, 50cc/overnight. D/c BOBBY drain, advance diet and discharge home later. Patient to follow up with auto body worker to manage pain medications for long- term chronic pain. Follow up in clinic 2-4 weeks, sooner if concerns.
[2018-07-09] MEDS ORDERED: Magnesium Oxide 400 mg Tab UD PO SCH (12:15)
[2018-07-09] MEDS: Enoxaparin 40 mg Syringe SC SCH (12:26)
[2018-07-09 18:44] VITALS: BP 108/68; PULSE 60; RESP 18; TEMP 98.5
[2018-07-10] MEDS ORDERED: Pantoprazole 40 mg EC Tab PO SCH (10:00)
--- NOTE | 2018-07-10 22:24 | CP.PCM.DIS ---
Provider - Provider Date of Admission: 07/05/18 17:52 Attending physician: Brunilda Jett Consults: General [facility] - [facility] Zhang, [facility] - Pradeep Lazo Time Spent in preparation of Discharge (in minutes): 45 Diagnosis - Discharge Diagnosis (1) Cholelithiasis Status: Acute (2) Cholecystitis Status: Acute (3) Pancreatitis Status: Acute Hospital Course - Lab Results Lab Results: Micro Results 07/05/18 16:10 Blood Blood Culture - Final NO GROWTH AFTER 5 DAYS 07/05/18 16:10 Blood Gram Stain - Final TEST NOT PERFORMED 07/05/18 15:50 Blood Blood Culture - Final NO GROWTH AFTER 5 DAYS 07/05/18 15:50 Blood Gram Stain - Final TEST NOT PERFORMED 07/05/18 15:50 Urine Urine Culture - Final Gram Positive Cocci Most Recent Lab Values WBC 7.4 10^3/ul (4.5-11.0) D 07/09/18 06:30 RBC 3.88 10^6/uL (3.5-6.1) 07/09/18 06:30 Hgb 10.5 g/dL (12.0-16.0) L 07/09/18 06:30 Hct 30.6 % (36.0-48.0) L 07/09/18 06:30 MCV 78.9 fl (80.0-105.0) L 07/09/18 06:30 MCH 27.1 pg (25.0-35.0) 07/09/18 06:30 MCHC 34.3 g/dl (31.0-37.0) 07/09/18 06:30 RDW 13.6 % (11.5-14.5) 07/09/18 06:30 Plt Count 240 10^3/uL (120.0-450.0) 07/09/18 06:30 MPV 9.8 fl (7.0-11.0) 07/09/18 06:30 Gran % 62.4 % (50.0-68.0) 07/09/18 06:30 Lymph % (Auto) 29.7 % (22.0-35.0) 07/09/18 06:30 Edmonson % (Auto) 7.4 % (1.0-6.0) H 07/09/18 06:30 Eos % (Auto) 0.4 % (1.5-5.0) L 07/09/18 06:30 Baso % (Auto) 0.1 % (0.0-3.0) 07/09/18 06:30 Gran # 4.62 (1.4-6.5) 07/09/18 06:30 Lymph # (Auto) 2.2 (1.2-3.4) 07/09/18 06:30 Edmonson # (Auto) 0.6 (0.1-0.6) 07/09/18 06:30 Eos # (Auto) 0.0 (0.0-0.7) 07/09/18 06:30 Baso # (Auto) 0.01 K/mm3 (0.0-2.0) 07/09/18 06:30 PT 13.6 SECONDS (9.4-12.5) H 07/08/18 06:40 INR 1.18 07/08/18 06:40 APTT 35.3 Seconds (25.1-36.5) 07/08/18 06:40 pCO2 41 mm/Hg (35-45) 07/06/18 05:30 pO2 83.0 mm/Hg (80-100) 07/06/18 05:30 HCO3 24.3 mmol/L (21-28) 07/06/18 05:30 ABG pH 7.38 (7.35-7.45) 07/06/18 05:30 ABG Total CO2 25.6 mmol.L (22-28) 07/06/18 05:30 ABG O2 Saturation 98.1 % (95-98) H 07/06/18 05:30 ABG O2 Content 15.2 ML/dl (15-23) 07/06/18 05:30 ABG Base Excess -0.8 mmol/L (-2.0-3.0) 07/06/18 05:30 ABG Hemoglobin 11.3 g/dL (11.7-17.4) L 07/06/18 05:30 ABG Carboxyhemoglobin 2.0 % (0.5-1.5) H 07/06/18 05:30 POC ABG HHb (Measured) 1.8 % (0-5) 07/06/18 05:30 ABG Methemoglobin 0.9 % (0.0-3.0) 07/06/18 05:30 ABG O2 Capacity 15.5 mL/dl (16-24) L 07/06/18 05:30 VBG pH 7.30 (7.32-7.43) L 07/05/18 17:57 VBG pCO2 53.0 (40-60) 07/05/18 17:57 VBG HCO3 26.1 mmol/l (21-28) 07/05/18 17:57 VBG Total CO2 27.7 mmol.L (22-28) 07/05/18 17:57 VBG O2 Sat (Calc) 80.0 % (40-65) H 07/05/18 17:57 VBG Base Excess -1.1 mmol/L (0.0-2.0) L 07/05/18 17:57 VBG Potassium 4.0 mmol/L (3.6-5.2) 07/05/18 17:57 Hgb O2 Saturation 95.4 % (95.0-98.0) 07/06/18 05:30 Sodium 138.0 mmol/L (132-148) 07/05/18 17:57 Chloride 108.0 mmol/L (98-107) H 07/05/18 17:57 Glucose 101 mg/dl (65-105) 07/05/18 17:57 Lactate 0.9 mmol/L (0.7-2.1) 07/05/18 17:57 FiO2 21.0 % 07/06/18 05:30 Sodium 139 mmol/L (132-148) 07/09/18 06:30 Potassium 3.3 mmol/L (3.6-5.0) L 07/09/18 06:30 Chloride 105 mmol/L (98-107) 07/09/18 06:30 Carbon Dioxide 26 mmol/L (21-33) 07/09/18 06:30 Anion Gap 12 (10-20) 07/09/18 06:30 BUN 10 mg/dL (7-21) 07/09/18 06:30 Creatinine 0.5 mg/dl (0.7-1.2) L 07/09/18 06:30 Est GFR ( Amer) > 60 07/09/18 06:30 Est GFR (Non-Af Amer) > 60 07/09/18 06:30 POC Glucose (mg/dL) 103 mg/dL (65-110) 07/09/18 11:37 Random Glucose 134 mg/dL (70-110) H 07/09/18 06:30 Calcium 9.0 mg/dL (8.4-10.5) 07/09/18 06:30 Phosphorus 4.2 mg/dL (2.5-4.5) 07/09/18 06:30 Magnesium 1.6 mg/dL (1.7-2.2) L 07/09/18 06:30 Total Bilirubin 0.5 mg/dL (0.2-1.3) 07/09/18 06:30 AST 51 U/L (14-36) H 07/09/18 06:30 ALT 227 U/L (7-56) H 07/09/18 06:30 Alkaline Phosphatase 94 U/L (38-126) 07/09/18 06:30 Lactate Dehydrogenase 3679 U/L (333-699) H 07/05/18 15:50 Total Creatine Kinase 110 U/L (35-230) 07/05/18 15:50 Troponin I < 0.01 ng/mL 07/05/18 15:50 Total Protein 6.5 g/dL (5.8-8.3) 07/09/18 06:30 Albumin 3.8 g/dL (3.0-4.8) 07/09/18 06:30 Globulin 2.8 gm/dL 07/09/18 06:30 Albumin/Globulin Ratio 1.3 (1.1-1.8) 07/09/18 06:30 Triglycerides 99 mg/dL (35-160) 07/06/18 06:00 Cholesterol 162 mg/dL (130-200) 07/06/18 06:00 LDL Cholesterol Direct 91 mg/dL (0-129) 07/06/18 06:00 HDL Cholesterol 39 mg/dL (29-60) 07/06/18 06:00 Amylase 3432 U/L (35-125) H 07/05/18 15:50 Lipase 170 U/L (23-300) 07/07/18 09:00 Venous Blood Potassium 4.0 mmol/L (3.6-5.2) 07/05/18 17:57 Urine Color Dark yellow (YELLOW) 07/05/18 15:50 Urine Appearance Clear (CLEAR) 07/05/18 15:50 Urine pH 6.0 (4.7-8.0) 07/05/18 15:50 Ur Specific Gabriels 1.015 (1.005-1.035) 07/05/18 15:50 Urine Protein Trace mg/dL (<30 mg/dL) H 07/05/18 15:50 Urine Glucose (UA) Negative mg/dL (NEGATIVE) 07/05/18 15:50 Urine Ketones Negative mg/dL (NEGATIVE) 07/05/18 15:50 Urine Blood Negative (NEGATIVE) 07/05/18 15:50 Urine Nitrate Negative (NEGATIVE) 07/05/18 15:50 Urine Bilirubin Small (NEGATIVE) H 07/05/18 15:50 Urine Urobilinogen 0.2 E.U./dL (<1 E.U./dL) 07/05/18 15:50 Ur Leukocyte Esterase Negative Gerardo/uL (NEGATIVE) 07/05/18 15:50 Urine RBC Negative /hpf (0-2) 07/05/18 15:50 Urine WBC Negative /hpf (0-6) 07/05/18 15:50 Ur Epithelial Cells 1 - 3 /hpf (0-5) 07/05/18 15:50 Urine Bacteria Trace (NEG) 07/05/18 15:50 Urine HCG, Qual Negative (NEGATIVE) 07/05/18 15:50 - Hospital Course Hospital Course: Trevin Zhang DO PGY1 - Internal Medicine Preforming Machine Operator - Hospital DC Summary: 28 year old female w/ no significant PMH who presented to the emergency department on 07/05/18 with sudden onset of severe epigastric pain radiating to the back. Patient reports associated nausea, non bloody vomiting, and worsening of pain with eating and drinking. Patient denied fever, chills, SOB, CP, diarrhea, vomiting, urinary symptoms, back pain, neck pain, headache, dizziness. GI Patient subsequently found to have Cholelithiasis with distended GB on abd U/S, as well as Gallstones and mildly distended GB with mild pericholecystic fluid, normal caliber CBD without stone on MRCP. On admission, CXR: no active disease however elevated lipase noted. Patient kept NPO upon adm, GI recommended to advance diet if no surgicla intervention was planned. Surgery consulted and will perform lap oralia once lipase begins trending down. Patient was started on empiric rocephin / flagyl upon admission. Pain was controlled w/ dilaudid prn. Patient under went lap oralia on 07/08/18. Surgery reported no complications, and post operatively patient afebrile, moving bowels and tolerating diet well. Post op pain was managed w/ Percocet. Patient was subsequently cleared for discharge on 07/09 by general surgery. Patient was seen and examined morning prior to discharge on POD#1 s/p lap cholecystectomy. Patient reports minimal abdominal pain; improved presentation, and tolerates diet well. Denied any F, chills, chest pain, sob, n/v/d/c. Reported some residual tenderness post op. Remainder of 12 system ROS was negative at time of discharge. Upon discharge, patient was given the following instructions: You were admitted for gallstone pancreatitis and subsequently had your gall bladder removed Please follow up with your primary care doctor - Dr. Pugh at [facility] on 08/05/18 at 230pm Please follow up with your general surgeon - Dr. Naman Zhang [phone] within 1 weeks of discharge Please take over the counter motrin or tylenol if you have mild pain post operatively. You have been given a prescription for percocet for severe pain, do not breast feed when taking this medication; please do not drive or operate heavy machinery while taking this medication You have recently taken opiate pain medication and antibiotics while admitted here; please discard your breast milk for the next 48 hours before breast feeding If you begin experience worsening pain, or new worsening symptoms arise please return to the nearest emergency room immediately Patient is medically optimized for discharge at this time. - Date & Time of H&P Date of H&P: 07/05/18 Time of H&P: 18:55 Discharge Exam - Head Exam Head Exam: ATRAUMATIC, NORMOCEPHALIC - Eye Exam Eye Exam: EOMI, PERRL. absent: Scleral icterus - ENT Exam ENT Exam: Mucous Membranes Moist - Respiratory Exam Respiratory Exam: Clear to PA & Lateral, NORMAL BREATHING PATTERN, UNREMARKABLE - Cardiovascular Exam Cardiovascular Exam: REGULAR RHYTHM, RRR, +S1, +S2. absent: Systolic Murmur - GI/Abdominal Exam GI & Abdominal Exam: Distended (tympanic), Soft. absent: Tenderness Additional comments: Surgical incisions are clean, no discharge or erythema appreciated - Extremities Exam Extremities exam: pedal pulses present (2+ BL) Additional comments: No BL LE edema - Neurological Exam Neurological exam: Alert, CN II-XII Intact, Oriented x3 - Psychiatric Exam Psychiatric exam: Normal Affect, Normal Mood - Skin Skin Exam: Dry, Intact, Normal Color, Warm Discharge Plan - Follow Up Plan Condition: IMPROVED Disposition: HOME/ ROUTINE Instructions: Pancreatitis (DC), Gallstones (DC) Additional Instructions: You were admitted for gallstone pancreatitis and subsequently had your gall bladder removed Please follow up with your primary care doctor - Dr. Pugh at [facility] on 08/05/18 at 230pm Please follow up with your general surgeon - Dr. Naman Zhang [phone] within 1 weeks of discharge Please take over the counter motrin or tylenol if you have mild pain post operatively. You have been given a prescription for percocet for severe pain, do not breast feed when taking this medication; please do not drive or operate heavy machinery while taking this medication You have recently taken opiate pain medication and antibiotics while admitted here; please discard your breast milk for the next 48 hours before breast feeding If you begin experience worsening pain, or new worsening symptoms arise please return to the nearest emergency room immediately Referrals: Naman Zhang MD [Staff Provider] - Amie Campos MD [Staff Provider] - Kayley Pugh MD [Medical Doctor] - Pradeep Hwang DO [Staff Provider] -
== END 2018-07-09 18:54 | disposition home or self-care (01) | DRG 418 ==
LOC: ED 15:04 → ERH 17:52 → 3RSO 22:06
PROVIDERS: ADMIT Internal Medicine; ATTEND Internal Medicine
PROC: 0FT44ZZ Resection of Gallbladder, Percutaneous Endoscopic Approach (ICD-10-PCS; principal; 2018-07-08 13:15)
DX: K85.10 Biliary acute pancreatitis without necrosis or infection (principal); K80.00 Calculus of gallbladder with acute cholecystitis without obstruction; K66.0 Peritoneal adhesions (postprocedural) (postinfection); E66.3 Overweight; Z68.28 Body mass index [BMI] 28.0-28.9, adult